=== PATIENT | female | born 1950 | race Asian ===

== ENCOUNTER 2016-09-24 14:30 | Outpatient (CLI) | payer MEDICARE | END 2016-09-24 14:31 | disposition home or self-care (01) | DX: I48.0 Paroxysmal atrial fibrillation (principal); N28.9 Disorder of kidney and ureter, unspecified ==

== ENCOUNTER 2016-11-11 10:28 | Outpatient (CLI) | payer MEDICARE, OTHER | END 2016-11-11 10:29 | disposition critical access hospital (66) | DX: R42 Dizziness and giddiness (principal); R06.02 Shortness of breath; R31.9 Hematuria, unspecified | CPT/HCPCS: A0425; A0427 ==

== ENCOUNTER 2016-11-11 10:47 | Emergency (ER) | payer MEDICARE, OTHER ==
[2016-11-11] MEDS ORDERED: hydrOXYzine PAMOATE 25 MG CAPSULE PO STA (14:27)
[2016-11-11] MEDS ORDERED: NITROFURANTOIN MACRO 100 MG CAPSULE PO STA (14:40)
[2016-11-11] MEDS ORDERED: NITROFURANTOIN MACRO 100 MG CAPSULE PO ONE (14:47)
[2016-11-11] MEDS ORDERED: AMOX/CLAV 875 MG/125 MG TABLET PO STA (16:29)
[2016-11-11] MEDS ORDERED: AMOX/CLAV 875 MG/125 MG TABLET PO ONE (16:36)
== END 2016-11-11 17:02 | disposition home or self-care (01) ==
DX: N30.91 Cystitis, unspecified with hematuria (principal); D58.9 Hereditary hemolytic anemia, unspecified; K92.1 Melena; J40 Bronchitis, not specified as acute or chronic; I10 Essential (primary) hypertension; I48.91 Unspecified atrial fibrillation; Z95.2 Presence of prosthetic heart valve; Z79.01 Long term (current) use of anticoagulants; Z79.82 Long term (current) use of aspirin; Z95.1 Presence of aortocoronary bypass graft; Z86.73 Personal history of transient ischemic attack (TIA), and cerebral infarction without residual deficits; Z88.1 Allergy status to other antibiotic agents
CPT/HCPCS: 36415; 71020; 81001; 85025; 85610; 87086; 93005; 99284; A9270

== ENCOUNTER 2016-11-12 08:00 | Outpatient (CLI) | payer MEDICARE, OTHER | END 2016-11-12 23:59 | DX: R06.02 Shortness of breath (principal) ==

== ENCOUNTER 2016-11-18 16:29 | Outpatient (CLI) | payer MEDICARE, OTHER | END 2016-11-18 16:30 | disposition short-term general hospital (02) | DX: R06.02 Shortness of breath (principal) | CPT/HCPCS: A0425; A0427 ==

== ENCOUNTER 2017-01-21 10:40 | Outpatient (CLI) | payer MEDICAID, MEDICARE, OTHER ==
[2017-01-21 17:28] LABS: CREATININE 4.8 mg/dL (0.4-1.0)
[2017-01-21 17:51] LABS: BASOPHILS # (AUTO) 0.1 10^3/uL (0.0-0.1); BASOPHILS % (AUTO) 1.3 %; EOSINOPHILS # (AUTO) 0.1 10^3/uL (0.0-0.7); EOSINOPHILS % (AUTO) 1.6 %; HCT - HEMATOCRIT 22.1 % (37.0-47.0); HGB - HEMOGLOBIN 7.2 g/dL (12.0-16.0); LYMPHOCYTES # (AUTO) 1.5 10^3/uL (1.5-3.5); LYMPHOCYTES % (AUTO) 17.6 %; MEAN CORPUSCULAR HEMOGLOBIN 30.4 pg (27.0-31.0); MEAN CORPUSCULAR HGB CONC 32.6 g/dL (32.0-36.0); MEAN CORPUSCULAR VOLUME 93.3 fL (81.0-99.0); MEAN PLATELET VOLUME 9.2 fL (7.9-10.8); MONOCYTES # (AUTO) 0.7 10^3/uL (0.0-1.0); MONOCYTES % (AUTO) 8.6 %; NEUTROPHILS % (AUTO) 70.9 %; NUCLEATED RED BLOOD CELLS AUTO 0.3 /100WBC; RED BLOOD COUNT 2.37 10^6/uL (4.20-5.40); RED CELL DISTRIBUTION WIDTH 22.2 % (12.0-15.0); UNCORRECTED WHITE BLOOD COUNT 8.5 x10^3/uL; WHITE BLOOD COUNT 8.5 x10^3/uL (4.8-10.8)
[2017-01-21 18:48] LABS: PLATELET ESTIMATE, MANUAL NORMAL (130-450,000) (NORMAL)
[2017-01-21 20:21] LABS: CALCIUM 9.2 mg/dL (8.5-10.3); POTASSIUM 4.4 mmol/L (3.5-5.0)
== END 2017-01-21 10:41 | disposition home or self-care (01) ==
LOC: LAB.R 10:40
DX: D59.9 Acquired hemolytic anemia, unspecified (principal); I10 Essential (primary) hypertension
CPT/HCPCS: 80048; 85025

== ENCOUNTER 2017-01-22 08:00 | Outpatient (CLI) | payer MEDICARE, MEDICAID ==
[2017-01-22 17:38] LABS: CALCIUM 8.9 mg/dL (8.5-10.3); CREATININE 4.2 mg/dL (0.4-1.0); POTASSIUM 4.5 mmol/L (3.5-5.0)
[2017-01-22 17:45] LABS: BASOPHILS # (AUTO) 0.1 10^3/uL (0.0-0.1); BASOPHILS % (AUTO) 1.3 %; EOSINOPHILS # (AUTO) 0.2 10^3/uL (0.0-0.7); EOSINOPHILS % (AUTO) 2.9 %; HCT - HEMATOCRIT 21.3 % (37.0-47.0); LYMPHOCYTES # (AUTO) 1.4 10^3/uL (1.5-3.5); MEAN CORPUSCULAR HEMOGLOBIN 30.7 pg (27.0-31.0); MEAN CORPUSCULAR HGB CONC 32.5 g/dL (32.0-36.0); MEAN CORPUSCULAR VOLUME 94.3 fL (81.0-99.0); MONOCYTES # (AUTO) 0.8 10^3/uL (0.0-1.0); MONOCYTES % (AUTO) 12.1 %; NEUTROPHILS # (AUTO) 4.3 10^3/uL (1.5-6.6); NEUTROPHILS % (AUTO) 62.7 %; NUCLEATED RED BLOOD CELLS AUTO 0.6 /100WBC; RED BLOOD COUNT 2.26 10^6/uL (4.20-5.40); RED CELL DISTRIBUTION WIDTH 22.2 % (12.0-15.0); UNCORRECTED WHITE BLOOD COUNT 6.9 x10^3/uL; WHITE BLOOD COUNT 6.9 x10^3/uL (4.8-10.8)
[2017-01-22 17:52] LABS: HGB - HEMOGLOBIN 6.9 g/dL (12.0-16.0)
[2017-01-22 19:48] LABS: PLATELET ESTIMATE, MANUAL NORMAL (130-450,000) (NORMAL)
== END 2017-01-22 08:01 | disposition home or self-care (01) ==
LOC: LAB.R 08:00
PROVIDERS: ATTEND Family Medicine
DX: I48.91 Unspecified atrial fibrillation (principal); D59.9 Acquired hemolytic anemia, unspecified
CPT/HCPCS: 80048; 85025

== ENCOUNTER 2017-01-22 20:34 | Outpatient (CLI) | payer MEDICARE, OTHER, MEDICAID | END 2017-01-22 20:35 | disposition short-term general hospital (02) | LOC: EMS 20:34 | PROVIDERS: ATTEND Surgery | DX: R06.02 Shortness of breath (principal) | CPT/HCPCS: A0425; A0429; A0888 ==

== ENCOUNTER 2017-04-07 14:53 | Outpatient (CLI) | payer MEDICARE, OTHER, MEDICAID | END 2017-04-07 14:54 | disposition home or self-care (01) | LOC: SC 14:53 | PROVIDERS: ATTEND Internal Medicine Pulmonary Disease | DX: G47.30 Sleep apnea, unspecified (principal); G47.8 Other sleep disorders; R06.83 Snoring | CPT/HCPCS: 99203; G0463; 99212 ==

== ENCOUNTER 2017-05-15 19:36 | Outpatient (CLI) | payer MEDICARE, OTHER | END 2017-05-15 19:37 | disposition home or self-care (01) | LOC: SC 19:36 | PROVIDERS: ATTEND Internal Medicine Pulmonary Disease | DX: G47.61 Periodic limb movement disorder (principal) | CPT/HCPCS: 95810 ==

== ENCOUNTER 2017-05-23 08:33 | Outpatient (CLI) | payer MEDICARE, OTHER ==
[2017-05-23 13:17] LABS: CHOL/HDL RATIO 3.3 (<4.4); CHOLESTEROL 203 mg/dL; HDL CHOLESTEROL 61 mg/dL; LDL/HDL RATIO 1.8 (<4.4); TRIGLYCERIDES 159 mg/dL; VLDL CHOLESTEROL 32 mg/dL
== END 2017-05-23 08:34 | disposition home or self-care (01) ==
LOC: LAB.WCP 08:33
PROVIDERS: ATTEND Family Medicine
DX: E78.5 Hyperlipidemia, unspecified (principal)
CPT/HCPCS: 80061

== ENCOUNTER 2017-06-01 08:34 | Outpatient (CLI) | payer MEDICARE, OTHER | END 2017-06-01 08:35 | disposition home or self-care (01) | LOC: SC 08:34 | PROVIDERS: ATTEND Nurse Practitioner Family | DX: G47.61 Periodic limb movement disorder (principal); F51.04 Psychophysiologic insomnia | CPT/HCPCS: 99214; G0463; 99212 ==

== ENCOUNTER 2017-08-05 21:20 | Outpatient (CLI) | payer MEDICARE, OTHER | END 2017-08-05 21:21 | disposition critical access hospital (66) | LOC: EMS 21:20 | PROVIDERS: ATTEND Surgery | DX: R42 Dizziness and giddiness (principal) | CPT/HCPCS: A0425; A0429 ==

== ENCOUNTER 2017-08-05 21:37 | Emergency (ER) | payer MEDICARE, OTHER ==
[2017-08-05 22:08] LABS: BASOPHILS # (AUTO) 0.1 10^3/uL (0.0-0.1); BASOPHILS % (AUTO) 0.6 %; EOSINOPHILS # (AUTO) 0.1 10^3/uL (0.0-0.7); EOSINOPHILS % (AUTO) 0.7 %; HCT - HEMATOCRIT 35.2 % (37.0-47.0); HGB - HEMOGLOBIN 11.2 g/dL (12.0-16.0); MEAN CORPUSCULAR HEMOGLOBIN 28.2 pg (27.0-31.0); MEAN CORPUSCULAR HGB CONC 31.9 g/dL (32.0-36.0); MEAN CORPUSCULAR VOLUME 88.5 fL (81.0-99.0); MEAN PLATELET VOLUME 7.9 fL (7.9-10.8); MONOCYTES # (AUTO) 0.9 10^3/uL (0.0-1.0); MONOCYTES % (AUTO) 6.5 %; NEUTROPHILS # (AUTO) 11.9 10^3/uL (1.5-6.6); NEUTROPHILS % (AUTO) 85.2 %; NUCLEATED RED BLOOD CELLS AUTO 0.1 /100WBC; RED BLOOD COUNT 3.98 10^6/uL (4.20-5.40); RED CELL DISTRIBUTION WIDTH 13.9 % (12.0-15.0); UNCORRECTED WHITE BLOOD COUNT 13.9 x10^3/uL; WHITE BLOOD COUNT 13.9 x10^3/uL (4.8-10.8)
[2017-08-05 22:14] LABS: INR 2.4 (0.8-1.2); PT - PROTHROMBIN TIME 26.3 secs (9.9-12.6)
[2017-08-05 22:16] LABS: CALCIUM 9.2 mg/dL (8.5-10.3); CREATININE 2.7 mg/dL (0.4-1.0); POTASSIUM 3.3 mmol/L (3.5-5.0)
--- NOTE | 2017-08-05 22:16 | ED Physician Documentation ---
History of Present Illness - Stated complaint Stated Complaint: BLEEDING FROM EXTRACTION - Chief complaint Chief Complaint: Heent - History obtained from History obtained from: Patient - History of Present Illness Timing: Today - Additonal information Additional information: patient had two teeth extracted earlier today by Dr. Sathish Meyer, but she had to return later during the day due to ongoing bleeding from the extraction sites. Patient is on Coumadin. The dentist was able to stop the bleeding with collagen "plug" (per patient), but she presents to ED at this time due to concern regarding the amount of blood she lost and some episodic lightheadedness when she stands and ambulates. The bleeding has not recurred since she was seen by the dentist. Review of Systems Throat: reports: Other (bleeding from dental extraction sites) PD PAST MEDICAL HISTORY - Past Medical History Cardiovascular: Hypertension, High cholesterol, Atrial fibrillation, Murmur, Arrhythmia, Valve disorder Respiratory: Shortness of breath Neuro: TIA, Headache/migraine Endocrine/Autoimmune: None GI: Hiatal hernia : Incontinence HEENT: Chronic vision loss Psych: Depression, Anxiety, Panic attacks Musculoskeletal: Osteoarthritis Derm: None - Past Surgical History Past Surgical History: Yes General: Other Ortho: Knee replacement, Arthroscopic surgery, Other /MANAGER COSMETIC: Tubal ligation Cardiovascular: CABG, Valve replacement - Present Medications Home Medications: Ambulatory Orders Medication Instructions Recorded Confirmed Aspirin 81 mg PO DAILY 10/02/13 08/05/17 Buspirone HCl 15 mg PO BID 10/02/13 08/05/17 FLUoxetine [PROzac] 40 mg PO DAILY 10/02/13 08/05/17 Metoprolol Succinate [Toprol Xl] 25 mg PO BID 10/02/13 08/05/17 Mirtazapine [Remeron] 15 mg PO HS 10/02/13 08/05/17 Pantoprazole Sodium [Protonix] 40 mg PO BID 10/02/13 08/05/17 Warfarin Sodium [Coumadin] 5 mg PO MOFR 10/02/13 08/05/17 ALPRAZolam [Xanax] 0.5 mg PO ONCE PRN 12/17/13 08/05/17 traMADol [Ultram] 50 mg PO TID 12/17/13 08/05/17 Atorvastatin [Lovastatin] 40 mg DAILY 12/23/13 08/05/17 Furosemide [Lasix] 40 mg PO BID 11/11/16 08/05/17 Acetaminophen with Codeine 1 tab PO Q4H PRN 04/12/17 08/05/17 [Acetaminophen-Cod #3 Tablet] Amiodarone HCl 200 mg PO DAILY 04/12/17 08/05/17 Bupropion HCl [Bupropion HCl Sr] 150 mg PO DAILY 04/12/17 08/05/17 Cyanocobalamin (Vitamin B-12) 1,000 mcg PO DAILY 04/12/17 08/05/17 [Vitamin B-12] Losartan Potassium [Losartan 12.5 mg PO DAILY 04/12/17 08/05/17 Potassium] Warfarin [Coumadin] 2.5 mg PO TUTHSA 04/12/17 08/05/17 Folic Acid 0.4 mg PO DAILY 05/24/17 08/05/17 - Allergies Allergies/Adverse Reactions: Allergies Allergy/AdvReac Type Severity Reaction Status Date / Time doxycycline Allergy Severe Emesis Verified 08/05/17 21:57 azithromycin [From Zithromax] Allergy Unknown Verified 08/05/17 21:57 trazodone Allergy Respiratory Verified 08/05/17 22:00 shellfish derived AdvReac Hives Verified 08/05/17 21:57 - Social History Does the pt smoke?: No Smoking Status: Never smoker Does the pt drink ETOH?: Yes Does the pt have substance abuse?: No - Immunizations Immunizations are current?: Yes - POLST Patient has POLST: No PD ED PE NORMAL - Vitals Vital signs reviewed: Yes - General General: Alert and oriented X 3, No acute distress, Well developed/nourished - HEENT HEENT: Moist mucous membranes, Other (right mandibular extraction sites have gauze material in place (appears to be gel foam or surgicel) with no active bleeding noted) - Cardiac Cardiac: RRR - Respiratory Respiratory: No respiratory distress, Clear bilaterally - Derm Derm: Normal color PD ED PE EXPANDED - Cardiac Cardiac: Murmur Present Results - Vitals Vitals: Vital Signs - 24 hr 08/05/17 08/05/17 08/05/17 21:39 22:58 23:34 Temperature 35.9 C L Heart Rate 96 74 Heart Rate [ 78 Sitting] Heart Rate [ 83 Standing] Heart Rate [ 75 Supine] Respiratory 18 14 Rate Blood Pressure 107/75 118/76 Blood Pressure 124/68 [Sitting] Blood Pressure 105/62 [Standing] Blood Pressure 101/64 [Supine] O2 Saturation 95 100 08/06/17 00:05 Temperature Heart Rate 74 Heart Rate [ Sitting] Heart Rate [ Standing] Heart Rate [ Supine] Respiratory 16 Rate Blood Pressure 110/68 Blood Pressure [Sitting] Blood Pressure [Standing] Blood Pressure [Supine] O2 Saturation 100 Oxygen O2 Source Room air - Labs Labs: Laboratory Tests 08/05/17 08/05/17 08/05/17 22:00 22:00 22:00 WBC 13.9 H RBC 3.98 L Hgb 11.2 L Hct 35.2 L MCV 88.5 MCH 28.2 MCHC 31.9 L RDW 13.9 Plt Count 285 MPV 7.9 Neut # 11.9 H Lymph # 1.0 L [place] # 0.9 Eos # 0.1 Baso # 0.1 Absolute Nucleated RBC 0.01 Nucleated RBC % 0.1 PT 26.3 H INR 2.4 H Sodium 142 Potassium 3.3 L Chloride 100 L Carbon Dioxide 26 Anion Gap 16.0 H BUN 34 H Creatinine 2.7 H Estimated GFR (MDRD) 18 L Glucose 118 H Calcium 9.2 PD MEDICAL DECISION MAKING - ED course Complexity details: reviewed results, re-evaluated patient, considered differential, d/w patient ED course: Reassuring blood test results, mostly comparable to previous results although her creatinine is more elevated than her baseline (except for January of 2017 when it was particularly elevated associated with acute illness). Given 500cc NS bolus and subsequently orthostatic vital signs did not reveal significant change from lying down to sitting to standing. Departure - Departure Disposition: 01 Home, Self Care Clinical Impression: Surgical wound hemorrhage after dental procedure Condition: Good Instructions: ED Wound Check Post Op Bleeding Comments: Your blood pressure and blood tests were reassuring tonight and do not indicate a significant amount of blood loss. Follow-up with your dentist to reassess the extraction sites, and follow-up with your primary care physician, as they might recommend rechecking of some of the blood tests. Discharge Date/Time: 08/06/17 00:10
[2017-08-05] MEDS ORDERED: SODIUM CHLORIDE 0.9% 500 ML IV STA (22:36)
[2017-08-06 00:11] VITALS: BP 110/68
== END 2017-08-06 00:10 | disposition home or self-care (01) ==
LOC: EDUNIT# → ED 21:37
DX: L76.22 Postprocedural hemorrhage of skin and subcutaneous tissue following other procedure (principal); Z98.818 Other dental procedure status; K08.409 Partial loss of teeth, unspecified cause, unspecified class; I10 Essential (primary) hypertension; E78.00 Pure hypercholesterolemia, unspecified; I48.91 Unspecified atrial fibrillation; Z79.01 Long term (current) use of anticoagulants; I49.9 Cardiac arrhythmia, unspecified; Z86.73 Personal history of transient ischemic attack (TIA), and cerebral infarction without residual deficits; I25.10 Atherosclerotic heart disease of native coronary artery without angina pectoris; Z95.1 Presence of aortocoronary bypass graft; M19.90 Unspecified osteoarthritis, unspecified site; Z95.2 Presence of prosthetic heart valve; Z79.82 Long term (current) use of aspirin
CPT/HCPCS: 36415; 80048; 85025; 85610; 99283; 99284

== ENCOUNTER 2017-08-17 08:00 | Outpatient (CLI) | payer MEDICARE, OTHER ==
[2017-08-17 18:43] LABS: BASOPHILS % (AUTO) 0.6 %; EOSINOPHILS # (AUTO) 0.2 10^3/uL (0.0-0.7); EOSINOPHILS % (AUTO) 3.6 %; HCT - HEMATOCRIT 37.1 % (37.0-47.0); HGB - HEMOGLOBIN 11.8 g/dL (12.0-16.0); IMMATURE RETIC FRACTION 0.48; LYMPHOCYTES # (AUTO) 1.6 10^3/uL (1.5-3.5); LYMPHOCYTES % (AUTO) 23.9 %; MEAN CORPUSCULAR HEMOGLOBIN 28.9 pg (27.0-31.0); MEAN CORPUSCULAR HGB CONC 31.7 g/dL (32.0-36.0); MEAN CORPUSCULAR VOLUME 91.2 fL (81.0-99.0); MEAN PLATELET VOLUME 8.2 fL (7.9-10.8); MONOCYTES # (AUTO) 0.6 10^3/uL (0.0-1.0); MONOCYTES % (AUTO) 8.6 %; NEUTROPHILS # (AUTO) 4.1 10^3/uL (1.5-6.6); NEUTROPHILS % (AUTO) 63.3 %; NUCLEATED RED BLOOD CELLS AUTO 0.1 /100WBC; RED BLOOD COUNT 4.07 10^6/uL (4.20-5.40); RED CELL DISTRIBUTION WIDTH 14.6 % (12.0-15.0); UNCORRECTED WHITE BLOOD COUNT 6.5 x10^3/uL; WHITE BLOOD COUNT 6.5 x10^3/uL (4.8-10.8)
[2017-08-17 18:50] LABS: ALBUMIN/GLOBULIN RATIO 1.3 (1.0-2.2); BILIRUBIN,TOTAL 0.5 mg/dL (0.2-1.0); CALCIUM 9.1 mg/dL (8.5-10.3); CREATININE 2.4 mg/dL (0.4-1.0); POTASSIUM 3.7 mmol/L (3.5-5.0); TOTAL PROTEIN 7.7 g/dL (6.7-8.2)
== END 2017-08-17 08:01 | disposition home or self-care (01) ==
LOC: LAB.WCP 08:00
PROVIDERS: ATTEND Family Medicine
DX: D64.9 Anemia, unspecified (principal); N17.9 Acute kidney failure, unspecified; D59.1 Other autoimmune hemolytic anemias
CPT/HCPCS: 36415; 80053; 85025; 85044

== ENCOUNTER 2017-11-01 16:15 | Outpatient (CLI) | payer MEDICARE, OTHER | END 2017-11-01 16:16 | disposition home or self-care (01) | LOC: LAB.R 16:15 | PROVIDERS: ATTEND Family Medicine | DX: N39.0 Urinary tract infection, site not specified (principal) | CPT/HCPCS: 87086 ==

== ENCOUNTER 2018-05-08 14:24 | Outpatient (CLI) | payer MEDICARE, OTHER ==
[2018-05-08 19:14] LABS: CALCIUM 8.9 mg/dL (8.5-10.3); CREATININE 2.3 mg/dL (0.4-1.0)
== END 2018-05-08 14:25 | disposition home or self-care (01) ==
LOC: LAB.WCP 14:24
PROVIDERS: ATTEND Internal Medicine Nephrology
DX: N05.9 Unspecified nephritic syndrome with unspecified morphologic changes (principal)
CPT/HCPCS: 36415; 80048

== ENCOUNTER → 2018-06-22 | Outpatient (CLI) | payer MEDICARE, OTHER ==
[2018-06-22 18:59] LABS: CREATININE 2.4 mg/dL (0.4-1.0)
== END ==
LOC: LAB.WCP 08:00
PROVIDERS: ATTEND Internal Medicine Nephrology
DX: N05.9 Unspecified nephritic syndrome with unspecified morphologic changes (principal)
CPT/HCPCS: 36415; 80048

== ENCOUNTER 2018-09-05 08:00 | Outpatient (CLI) | payer MEDICARE, OTHER ==
[2018-09-05 18:56] LABS: HGB - HEMOGLOBIN 13.1 g/dL (12.0-16.0); MEAN CORPUSCULAR HEMOGLOBIN 29.4 pg (27.0-31.0); MEAN CORPUSCULAR HGB CONC 32.4 g/dL (32.0-36.0); MEAN CORPUSCULAR VOLUME 90.9 fL (81.0-99.0); MEAN PLATELET VOLUME 8.6 fL (7.9-10.8); RED BLOOD COUNT 4.46 10^6/uL (4.20-5.40); RED CELL DISTRIBUTION WIDTH 13.8 % (12.0-15.0); WHITE BLOOD COUNT 7.3 x10^3/uL (4.8-10.8)
[2018-09-05 19:08] LABS: CALCIUM 8.8 mg/dL (8.5-10.3); CREATININE 2.3 mg/dL (0.4-1.0)
== END 2018-09-05 23:59 | disposition home or self-care (01) ==
LOC: LAB.WCP 08:00
PROVIDERS: ATTEND Family Medicine
DX: R06.00 Dyspnea, unspecified (principal)
CPT/HCPCS: 36415; 80048; 83880; 85027

== ENCOUNTER 2018-09-27 11:55 | Outpatient (CLI) | payer MEDICARE, OTHER ==
[2018-09-27 19:20] LABS: MEAN CORPUSCULAR HEMOGLOBIN 29.1 pg (27.0-31.0); MEAN PLATELET VOLUME 7.9 fL (7.9-10.8); RED BLOOD COUNT 4.12 10^6/uL (4.20-5.40); RED CELL DISTRIBUTION WIDTH 13.4 % (12.0-15.0); WHITE BLOOD COUNT 8.7 x10^3/uL (4.8-10.8)
[2018-09-27 19:32] LABS: CRP - C-REACTIVE PROTEIN 7.6 mg/dL (0-1.0)
[2018-09-27 19:37] LABS: URIC ACID 11.9 mg/dL (2.6-7.2)
[2018-09-27 19:52] LABS: RHEUMATOID FACTOR NEGATIVE (Negative)
== END 2018-09-27 11:56 | disposition home or self-care (01) ==
LOC: LAB.WCP 11:55
PROVIDERS: ATTEND Family Medicine
DX: M79.673 Pain in unspecified foot (principal); I48.0 Paroxysmal atrial fibrillation
CPT/HCPCS: 36415; 84550; 85027; 85610; 85651; 86140; 86200; 86430

== ENCOUNTER 2018-10-24 08:00 | Outpatient (CLI) | payer MEDICARE, OTHER | END 2018-10-24 23:59 | disposition home or self-care (01) | LOC: LAB.WCP 08:00 | PROVIDERS: ATTEND Family Medicine | DX: I48.91 Unspecified atrial fibrillation (principal); I35.9 Nonrheumatic aortic valve disorder, unspecified; Z79.01 Long term (current) use of anticoagulants ==

== ENCOUNTER 2018-11-08 08:00 | Outpatient (CLI) | payer MEDICARE, OTHER ==
[2018-11-08 19:19] LABS: CALCIUM 9.3 mg/dL (8.5-10.3); CREATININE 2.2 mg/dL (0.4-1.0); PHOSPHORUS 3.3 mg/dL (2.5-4.6)
== END 2018-11-08 23:59 | disposition home or self-care (01) ==
LOC: LAB.WCP 08:00
PROVIDERS: ATTEND Internal Medicine Nephrology
DX: N05.9 Unspecified nephritic syndrome with unspecified morphologic changes (principal)
CPT/HCPCS: 36415; 80048; 83970; 84100

== ENCOUNTER 2018-11-22 08:00 | Outpatient (CLI) | payer MEDICARE, OTHER | END 2018-11-22 23:59 | disposition home or self-care (01) | LOC: LAB.WCP 08:00 | PROVIDERS: ATTEND Family Medicine | DX: I48.0 Paroxysmal atrial fibrillation (principal); Z79.01 Long term (current) use of anticoagulants | CPT/HCPCS: 81025 ==

== ENCOUNTER 2018-12-20 13:55 | Outpatient (CLI) | payer MEDICARE, OTHER ==
[2018-12-20 18:54] LABS: BASOPHILS % (AUTO) 0.4 %; EOSINOPHILS # (AUTO) 0.1 10^3/uL (0.0-0.7); EOSINOPHILS % (AUTO) 2.9 %; LYMPHOCYTES # (AUTO) 1.5 10^3/uL (1.5-3.5); LYMPHOCYTES % (AUTO) 30.3 %; MEAN CORPUSCULAR HEMOGLOBIN 28.7 pg (27.0-31.0); MEAN CORPUSCULAR HGB CONC 32.1 g/dL (32.0-36.0); MEAN CORPUSCULAR VOLUME 89.5 fL (81.0-99.0); MEAN PLATELET VOLUME 8.6 fL (7.9-10.8); MONOCYTES # (AUTO) 0.4 10^3/uL (0.0-1.0); MONOCYTES % (AUTO) 8.1 %; NEUTROPHILS # (AUTO) 2.8 10^3/uL (1.5-6.6); NEUTROPHILS % (AUTO) 58.3 %; PLT - PLATELET COUNT 270 10^3/uL (130-450); RED BLOOD COUNT 4.54 10^6/uL (4.20-5.40); RED CELL DISTRIBUTION WIDTH 14.5 % (12.0-15.0); WHITE BLOOD COUNT 4.8 x10^3/uL (4.8-10.8)
[2018-12-20 19:23] LABS: ALBUMIN 4.4 g/dL (3.2-5.5); ALBUMIN/GLOBULIN RATIO 1.2 (1.0-2.2); ALKALINE PHOSPHATASE 92 IU/L (42-121); ALT ALANINE AMINOTRANSFERASE 18 IU/L (10-60); AST ASPARTATE AMINOTRANSFERASE 27 IU/L (10-42); BILIRUBIN,TOTAL 0.6 mg/dL (0.2-1.0); BUN - BLOOD UREA NITROGEN 28 mg/dL (6-20); CALCIUM 9.2 mg/dL (8.5-10.3); CARBON DIOXIDE - CO2 26 mmol/L (21-32); CHLORIDE 102 mmol/L (101-111); CHOL/HDL RATIO 3.1 (<4.4); CHOLESTEROL 206 mg/dL; CREATININE 2.2 mg/dL (0.4-1.0); GFR - MDRD 22 (>89); GLUCOSE 107 mg/dL (70-100); HDL CHOLESTEROL 67 mg/dL; LDL CHOLESTEROL,CALCULATED 104 mg/dL; LDL/HDL RATIO 1.6 (<4.4); SODIUM 139 mmol/L (135-145); TOTAL PROTEIN 8.1 g/dL (6.7-8.2); URIC ACID 8.6 mg/dL (2.6-7.2); VLDL CHOLESTEROL 35 mg/dL
[2018-12-20 19:50] LABS: FREE T4 (FREE THYROXINE) 2.25 ng/dL (0.58-1.64)
== END 2018-12-20 13:56 | disposition home or self-care (01) ==
LOC: LAB.WCP 13:55
PROVIDERS: ATTEND Family Medicine
DX: N18.4 Chronic kidney disease, stage 4 (severe) (principal); I48.0 Paroxysmal atrial fibrillation; I25.10 Atherosclerotic heart disease of native coronary artery without angina pectoris; M10.00 Idiopathic gout, unspecified site
CPT/HCPCS: 36415; 80053; 80061; 83721; 84439; 84443; 84550; 85025

== ENCOUNTER 2019-01-23 14:02 | Outpatient (CLI) | payer MEDICARE, OTHER ==
[2019-01-23 19:09] LABS: THYROID STIMULATING HORMONE 6.28 uIU/mL (0.34-5.60)
[2019-01-23 19:10] LABS: FREE T4 (FREE THYROXINE) 2.35 ng/dL (0.58-1.64)
[2019-01-23 19:13] LABS: PROLACTIN 10.83 ng/mL
== END 2019-01-23 14:03 | disposition home or self-care (01) ==
LOC: LAB.WCP 14:02
PROVIDERS: ATTEND Family Medicine
DX: E23.3 Hypothalamic dysfunction, not elsewhere classified (principal); E07.9 Disorder of thyroid, unspecified
CPT/HCPCS: 36415; 84146; 84439; 84443; 84481; 86376; 86800

== ENCOUNTER 2019-01-31 11:07 | Outpatient (CLI) | payer MEDICARE, OTHER ==
--- NOTE | 2019-01-31 13:28 | Ultrasound Report ---
Reason: HYPERTHYROIDISM,PITUITARY DYSFUNCTION,KIDNEY DISEA Procedure Date: 01/31/2019 Accession Number: [id number] / [id number] Procedure: US - Head or Neck Soft Tissue CPT Code: FULL RESULT: EXAM: THYROID ULTRASOUND EXAM DATE: 01/31/2019 12:33 PM. CLINICAL HISTORY: HYPERTHYROIDISM,PITUITARY DYSFUNCTION,KIDNEY DISEASE. COMPARISON: None. TECHNIQUE: Real time sonographic imaging of the thyroid was performed by the director appointment. Multiple manufacturer's service representative static images were saved for review. FINDINGS: THYROID GLAND: Right Lobe: 5.0 x 2.5 x 2.7 cm, volume 17.6 cc. Normal background echotexture. Right Lobe Nodules: There are innumerable scattered tiny benign-appearing mixed cystic/solid nodules. There is a dominant complex nodule in the right mid pole measuring 14 x 11 x 10 mm diameter. Left Lobe: 5.0 x 1.8 x 1.9 cm, volume 8.9 cc. Normal background echotexture. Left Lobe Nodules: There are innumerable tiny benign-appearing scattered mixed cystic/solid nodules. There is a dominant vascular hypoechoic vascular mixed cystic/solid nodule in the medial left pole junction with the isthmus measuring 17 x 7 x 8 mm in diameter. This nodule also includes a macro calcification. Isthmus: 0.9 cm AP. Isthmic Nodules: None. LYMPH NODES: No adenopathy demonstrated in the central or lateral compartment. OTHER: None. IMPRESSION: 1. Mildly enlarged multinodular goiter. 2. Dominant 14 mm maximal diameter complex mixed cystic/solid right mid pole nodule. Ultrasound-guided fine-needle aspiration biopsy recommended. 3. Dominant 17 mm maximal diameter complex mixed cystic/solid left mid pole nodule with increased vascularity and central macrocalcification. Ultrasound-guided fine-needle aspiration biopsy recommended. Management recommendations are based on 2015 [place] [employer] Management Guidelines for Adult Patients with Thyroid Nodules and Differentiated Thyroid Cancer. RADIA
--- NOTE | 2019-01-31 15:48 | MRI Report ---
Reason: HYPERTHYROIDISM,PITUITARY DYSFUNCTION,KIDNEY DISEA Procedure Date: 01/31/2019 Accession Number: [id number] / [id number] Procedure: MRI - Brain W/O CPT Code: FULL RESULT: MRI BRAIN WITHOUT CONTRAST INDICATION: 68-year-old female. Hyperthyroidism. Pituitary dysfunction. Kidney disease. TECHNIQUE: 1. T1 sagittal and fat-saturated T2 coronal. 2. Axial T1 3D MP RAGE, FLAIR, T2*GRE and DWI. 3. Thin slice, T1 and T2 coronal (pituitary and sella). FINDINGS: The history of hyperthyroidism is noted. This examination and was presumably requested to evaluate for any possible, TSH secreting pituitary adenoma. However, gadolinium was not administered, presumably due to severe renal dysfunction. This limits evaluation of the pituitary. On the T1 sagittal sequence, the sella is not abnormally enlarged. No definite, T1 hyperintense neurohypophysis is identified in the posterior aspect of the sella on the 5 mm sagittal images. However, there is no abnormal T1 hyperintense focus elsewhere in the parasellar region to suggest the possibility of an ectopic posterior lobe. The pituitary appears to have a normal size and configuration. There is mild downsloping of the sellar floor on the left, probably related to development of the sphenoid sinus, rather than representing acquired depression of the floor. This results in mild displacement of the infundibulum to the left. The height of the pituitary appears symmetric from side to side. No focal T2 hyperintense or hypointense lesion is identified within the pituitary. There is no suprasellar mass. The optic chiasm is normal and noncompressed. There is generalized prominence of the cerebral cortical sulci and cerebellar folia, considered within normal limits for stated age. Ventricular size is normal. A small focus of encephalomalacia is identified in the cortex and subcortical white matter in the lateral aspect of the anterior left parietal lobe, consistent with the sequela of a remote, minor, embolic-type cortical infarction. This is in the distribution of the posterior division of the left middle cerebral artery. A mild amount of white matter disease is demonstrated in the supratentorial brain, manifested as focal and confluent T2 hyperintensities that are scattered throughout the periventricular, deep and subcortical white matter bilaterally. A frontoparietal distribution predominates. An old lacunar infarction is identified in the right caudate nucleus. Signal intensity of cortex and white matter is otherwise unremarkable. There appear to be flow voids for the main intracranial arteries. No abnormal diffusion restriction is demonstrated. A tiny focus of magnetic susceptibility artifact is identified in the anterior and inferior left parietal lobe, just posterior to the splenium of the corpus callosum (image 14 of series 801). In addition, there is a larger focus of magnetic susceptibility artifact within the cortex or on the surface of the cortex, laterally in the distribution of the anterior aspect of the left postcentral gyrus (image 16 of series 801). These foci of magnetic susceptibly artifact probably represent hemosiderin from prior microhemorrhages. No abnormal extra-axial fluid collection. No mass effect or midline shift. Very limited evaluation of the orbits reveals no gross pathology. There is mild mucosal thickening scattered throughout the ethmoid air cells. The paranasal sinuses are otherwise essentially clear. No significant mastoid or middle ear effusion is demonstrated. Marrow signal intensity of the regional skeletal structures is unremarkable. IMPRESSION: 1. A history of "hyperthyroidism, pituitary dysfunction" has been provided. Presumably, this examination was requested to evaluate for a possible TSH secreting pituitary adenoma. Unfortunately contrast could not be administered due to renal failure. This limits evaluation of the pituitary. In particular, the possibility of a small microadenoma cannot be excluded. However, no obvious pituitary lesion is demonstrated on this unenhanced brain MRI. Certainly no suprasellar mass is demonstrated. The optic chiasm is normal and noncompressed. 2. A small focus of encephalomalacia is seen in the left parietal lobe, consistent with the sequela of a remote, embolic-type infarction. This is in the distribution of the posterior division of the left middle cerebral artery. 3. A mild amount of white matter disease is identified in the supratentorial brain, likely representing chronic microangiopathy. 4. Small foci of magnetic susceptibility artifact are identified within the left parietal lobe, likely representing hemosiderin from previous microhemorrhages. Main differential diagnostic considerations for microhemorrhages in a patient of this age are amyloid angiopathy versus chronic hypertension. 5. No other significant intracranial pathology on this unenhanced brain MRI. In particular, there is no evidence of an acute infarction or acute hemorrhage.
== END 2019-01-31 11:08 | disposition home or self-care (01) ==
LOC: DI 11:07
PROVIDERS: ATTEND Family Medicine
DX: G93.89 Other specified disorders of brain (principal); R90.82 White matter disease, unspecified; E04.2 Nontoxic multinodular goiter; E05.90 Thyrotoxicosis, unspecified without thyrotoxic crisis or storm; E23.3 Hypothalamic dysfunction, not elsewhere classified; N18.4 Chronic kidney disease, stage 4 (severe)
CPT/HCPCS: 70551; 76536

== ENCOUNTER 2019-02-16 14:06 | Outpatient (CLI) | payer MEDICARE, OTHER ==
[2019-02-16 20:17] LABS: FREE T4 (FREE THYROXINE) 1.01 ng/dL (0.58-1.64)
== END 2019-02-16 14:07 | disposition home or self-care (01) ==
LOC: LAB.WCP 14:06
PROVIDERS: ATTEND Physician Assistant
DX: E05.90 Thyrotoxicosis, unspecified without thyrotoxic crisis or storm (principal)
CPT/HCPCS: 36415; 84439; 84443

== ENCOUNTER 2019-03-06 08:50 | Outpatient (CLI) | payer MEDICARE, OTHER ==
[2019-03-06] MEDS ORDERED: BUFFERED LIDOCAINE 10 ML SYRINGE ONE (09:26)
[2019-03-06] MEDS ORDERED: BUFFERED LIDOCAINE 10 ML SYRINGE IU ONE (11:30)
--- NOTE | 2019-03-06 14:23 | Ultrasound Report ---
Reason: THYROID NODULE Procedure Date: 03/06/2019 Accession Number: [id number] / [id number] Procedure: US - FNA Bx w/US Gnd les CPT Code: 46569 FULL RESULT: EXAM: Thyroid Fine Needle Aspiration EXAM DATE: 03/06/2019 10:57 AM. CLINICAL HISTORY: THYROID NODULE. COMPARISON: 01/31/2019. TECHNIQUE: The risks, benefits, and alternatives of the procedure were discussed with the patient. All questions were answered. Written and verbal consent were obtained. A site was marked over the bilateral thyroid in question under live sonographic evaluation, then subsequently prepped and draped in a sterile manner. Local anesthesia was performed with 1% lidocaine. A total of 4 22 gauge fine-needle aspirates/passes were performed through the right and left thyroid nodules in question, then passed to the director business management for preparation. Estimated blood loss was 0 mL. Sonographic images demonstrate needle placement within the target thyroid nodule, posteriorly in the inferior right pole and anteriorly towards the isthmus on the left, dominant nodule on each side respectively as suggested on the diagnostic ultrasound. Fluoroscopy Time: None. Number of Images: No fluoroscopic images, 23 sonographic images. FINDINGS IMPRESSION: Bilateral thyroid nodule FNA. RADIA
== END 2019-03-06 08:51 | disposition home or self-care (01) ==
LOC: DI 08:50
PROVIDERS: ATTEND Family Medicine
DX: E04.1 Nontoxic single thyroid nodule (principal)
CPT/HCPCS: 10005; 10006

== ENCOUNTER 2019-03-23 | Outpatient (CLI) | payer MEDICARE, OTHER | END 2019-03-23 23:59 | disposition home or self-care (01) ==

== ENCOUNTER 2019-03-27 12:32 | Outpatient (CLI) | payer MEDICARE, OTHER ==
--- NOTE | 2019-03-27 13:10 | CT Report ---
Reason: UNSPECIFIED INJURY OF HEAD, INITIAL ENCOUNTER Procedure Date: 03/27/2019 Accession Number: [id number] / [id number] Procedure: CT - HEAD WO CPT Code: FULL RESULT: EXAM: CT HEAD EXAM DATE: 03/27/2019 12:50 PM. CLINICAL HISTORY: UNSPECIFIED INJURY OF HEAD, INITIAL ENCOUNTER. COMPARISON: CT HEAD W/O CONT 11/09/2012 5:08 PM. TECHNIQUE: Multiaxial CT images were obtained from the foramen magnum to the vertex. Reformats: Sagittal and coronal. IV contrast: None. In accordance with CT protocol optimization, one or more of the following dose reduction techniques were utilized for this exam: automated exposure control, adjustment of mA and/or KV based on patient size, or use of iterative reconstructive technique. FINDINGS: Parenchyma: No intraparenchymal hemorrhage. Small foci of calcification, degenerative process in the bilateral basal ganglia again visualized. No evidence of mass or midline shift. Keys-white differentiation is distinct. Extraaxial Spaces: Normal for age. No subdural or epidural collections identified. Ventricles: Normal in size and position. Sinuses and Orbits: Imaged paranasal sinuses, orbits, and mastoids show no significant abnormality. Bones: No evidence of fracture or calvarial defect. Other: No scalp hematoma seen. IMPRESSION: Negative head CT. RADIA The call report notification system was initiated by Dr. Keely Young at 01:06 PM on 03/27/2019.
== END 2019-03-27 12:33 | disposition home or self-care (01) ==
LOC: DI 12:32
PROVIDERS: ATTEND Family Medicine
DX: G45.9 Transient cerebral ischemic attack, unspecified (principal); S09.90XA Unspecified injury of head, initial encounter; Z79.01 Long term (current) use of anticoagulants
CPT/HCPCS: 70450

== ENCOUNTER 2019-04-24 08:00 | Outpatient (CLI) | payer MEDICARE, OTHER ==
[2019-04-24 18:52] LABS: BASOPHILS % (AUTO) 0.5 %; EOSINOPHILS # (AUTO) 0.2 10^3/uL (0.0-0.7); EOSINOPHILS % (AUTO) 2.5 %; HGB - HEMOGLOBIN 12.6 g/dL (12.0-16.0); LYMPHOCYTES # (AUTO) 1.6 10^3/uL (1.5-3.5); LYMPHOCYTES % (AUTO) 25.5 %; MEAN CORPUSCULAR HEMOGLOBIN 28.8 pg (27.0-31.0); MEAN CORPUSCULAR HGB CONC 30.5 g/dL (32.0-36.0); MEAN CORPUSCULAR VOLUME 94.3 fL (81.0-99.0); MEAN PLATELET VOLUME 10.6 fL (7.9-10.8); MONOCYTES # (AUTO) 0.7 10^3/uL (0.0-1.0); MONOCYTES % (AUTO) 10.5 %; NEUTROPHILS # (AUTO) 3.8 10^3/uL (1.5-6.6); NEUTROPHILS % (AUTO) 60.4 %; PLT - PLATELET COUNT 283 10^3/uL (130-450); RED BLOOD COUNT 4.38 10^6/uL (4.20-5.40); RED CELL DISTRIBUTION WIDTH 13.7 % (12.0-15.0); WHITE BLOOD COUNT 6.3 x10^3/uL (4.8-10.8)
[2019-04-24 18:54] LABS: CREATININE 2.2 mg/dL (0.4-1.0); PHOSPHORUS 3.4 mg/dL (2.5-4.6)
== END 2019-04-24 23:59 ==
LOC: LAB.WCP 08:00
PROVIDERS: ATTEND Internal Medicine Nephrology
DX: N05.9 Unspecified nephritic syndrome with unspecified morphologic changes (principal); D70.9 Neutropenia, unspecified; E83.30 Disorder of phosphorus metabolism, unspecified; N25.81 Secondary hyperparathyroidism of renal origin
CPT/HCPCS: 36415; 80048; 83970; 84100; 85025

== ENCOUNTER 2019-05-08 08:00 | Outpatient (CLI) | payer MEDICARE, OTHER | END 2019-05-08 23:59 | disposition home or self-care (01) | LOC: LAB.WCP 08:00 | PROVIDERS: ATTEND Family Medicine | DX: I48.0 Paroxysmal atrial fibrillation (principal); Z79.01 Long term (current) use of anticoagulants ==

== ENCOUNTER 2019-06-05 08:00 | Outpatient (CLI) | payer MEDICARE, OTHER | END 2019-06-05 23:59 | disposition home or self-care (01) | LOC: LAB.WCP 08:00 | PROVIDERS: ATTEND Family Medicine | DX: Z79.01 Long term (current) use of anticoagulants (principal); I48.0 Paroxysmal atrial fibrillation ==

== ENCOUNTER 2019-06-20 08:00 | Outpatient (CLI) | payer MEDICARE, OTHER | END 2019-06-20 23:59 | disposition home or self-care (01) | LOC: LAB.WCP 08:00 | PROVIDERS: ATTEND Family Medicine | DX: I48.91 Unspecified atrial fibrillation (principal); Z79.01 Long term (current) use of anticoagulants ==

== ENCOUNTER 2019-07-04 08:00 | Outpatient (CLI) | payer MEDICARE, OTHER | END 2019-07-04 23:59 | disposition home or self-care (01) | LOC: LAB.WCP 08:00 | PROVIDERS: ATTEND Family Medicine | DX: Z79.01 Long term (current) use of anticoagulants (principal); I48.91 Unspecified atrial fibrillation ==

== ENCOUNTER 2019-07-25 09:00 | Outpatient (CLI) | payer MEDICARE, OTHER ==
[2019-07-25 18:41] LABS: HGB - HEMOGLOBIN 11.7 g/dL (12.0-16.0); MEAN CORPUSCULAR HEMOGLOBIN 28.3 pg (27.0-31.0); MEAN CORPUSCULAR HGB CONC 30.2 g/dL (32.0-36.0); MEAN CORPUSCULAR VOLUME 93.7 fL (81.0-99.0); MEAN PLATELET VOLUME 10.3 fL (7.9-10.8); RED BLOOD COUNT 4.14 10^6/uL (4.20-5.40); RED CELL DISTRIBUTION WIDTH 13.4 % (12.0-15.0); WHITE BLOOD COUNT 7.2 x10^3/uL (4.8-10.8)
[2019-07-25 19:00] LABS: CALCIUM 8.8 mg/dL (8.5-10.3); CREATININE 2.3 mg/dL (0.4-1.0)
== END 2019-07-25 23:59 | disposition home or self-care (01) ==
LOC: LAB.WCP 09:00
PROVIDERS: ATTEND Internal Medicine Nephrology
DX: N05.9 Unspecified nephritic syndrome with unspecified morphologic changes (principal); N18.9 Chronic kidney disease, unspecified; D63.1 Anemia in chronic kidney disease; D70.9 Neutropenia, unspecified; Z79.01 Long term (current) use of anticoagulants; I48.91 Unspecified atrial fibrillation
CPT/HCPCS: 36415; 80048; 85027

== ENCOUNTER 2019-08-27 08:00 | Outpatient (CLI) | payer MEDICARE, OTHER | END 2019-08-27 23:59 | disposition home or self-care (01) | LOC: LAB.WCP 08:00 | PROVIDERS: ATTEND Family Medicine | DX: Z79.01 Long term (current) use of anticoagulants (principal); I48.91 Unspecified atrial fibrillation ==

== ENCOUNTER 2019-09-24 08:00 | Outpatient (CLI) | payer MEDICARE, OTHER | END 2019-09-24 23:59 | disposition home or self-care (01) | LOC: LAB.WCP 08:00 | PROVIDERS: ATTEND Family Medicine | DX: I48.91 Unspecified atrial fibrillation (principal) ==

== ENCOUNTER 2019-10-23 08:00 | Outpatient (CLI) | payer MEDICARE, OTHER | END 2019-10-23 23:59 | disposition home or self-care (01) | LOC: LAB.WCP 08:00 | PROVIDERS: ATTEND Family Medicine | DX: I48.91 Unspecified atrial fibrillation (principal); Z79.01 Long term (current) use of anticoagulants ==

== ENCOUNTER 2019-11-05 08:00 | Outpatient (CLI) | payer MEDICARE, OTHER | END 2019-11-05 23:59 | disposition home or self-care (01) | LOC: LAB.R 08:00 | PROVIDERS: ATTEND Nurse Practitioner Family | DX: R30.0 Dysuria (principal) | CPT/HCPCS: 87086; 87181 ==

== ENCOUNTER 2019-11-09 08:00 | Outpatient (CLI) | payer MEDICARE, OTHER | END 2019-11-09 23:59 | disposition home or self-care (01) | LOC: LAB.WCP 08:00 | PROVIDERS: ATTEND Family Medicine | DX: I48.91 Unspecified atrial fibrillation (principal); G45.9 Transient cerebral ischemic attack, unspecified; Z79.01 Long term (current) use of anticoagulants ==

== ENCOUNTER 2019-11-09 13:00 | Outpatient (CLI) | payer MEDICARE, OTHER ==
[2019-11-09 18:30] LABS: HGB - HEMOGLOBIN 12.7 g/dL (12.0-16.0); MEAN CORPUSCULAR HEMOGLOBIN 27.4 pg (27.0-31.0); MEAN CORPUSCULAR HGB CONC 29.5 g/dL (32.0-36.0); MEAN CORPUSCULAR VOLUME 92.9 fL (81.0-99.0); MEAN PLATELET VOLUME 10.1 fL (7.9-10.8); RED BLOOD COUNT 4.64 10^6/uL (4.20-5.40); RED CELL DISTRIBUTION WIDTH 13.8 % (12.0-15.0); WHITE BLOOD COUNT 6.6 x10^3/uL (4.8-10.8)
[2019-11-09 19:24] LABS: CALCIUM 8.9 mg/dL (8.5-10.3); PHOSPHORUS 3.8 mg/dL (2.5-4.6)
== END 2019-11-09 23:59 | disposition home or self-care (01) ==
LOC: LAB.WCP 13:00
PROVIDERS: ATTEND Internal Medicine Nephrology
DX: N05.9 Unspecified nephritic syndrome with unspecified morphologic changes (principal); D70.9 Neutropenia, unspecified; I48.91 Unspecified atrial fibrillation; G45.9 Transient cerebral ischemic attack, unspecified; Z79.01 Long term (current) use of anticoagulants
CPT/HCPCS: 36415; 80048; 83970; 84100; 85027

== ENCOUNTER 2019-11-22 08:00 | Outpatient (CLI) | payer MEDICARE, OTHER | END 2019-11-22 23:59 | disposition home or self-care (01) | LOC: LAB.WCP 08:00 | PROVIDERS: ATTEND Family Medicine | DX: I48.91 Unspecified atrial fibrillation (principal); Z79.01 Long term (current) use of anticoagulants ==

== ENCOUNTER 2019-12-04 08:00 | Outpatient (CLI) | payer MEDICARE, OTHER | END 2019-12-04 23:59 | disposition home or self-care (01) | LOC: LAB.R 08:00 | PROVIDERS: ATTEND Family Medicine | DX: N39.0 Urinary tract infection, site not specified (principal) | CPT/HCPCS: 81002; 87086 ==

== ENCOUNTER 2019-12-20 08:00 | Outpatient (CLI) | payer MEDICARE, OTHER | END 2019-12-20 23:59 | disposition home or self-care (01) | LOC: LAB.WCP 08:00 | PROVIDERS: ATTEND Family Medicine | DX: G45.9 Transient cerebral ischemic attack, unspecified (principal); Z79.01 Long term (current) use of anticoagulants; I48.91 Unspecified atrial fibrillation ==

== ENCOUNTER 2020-02-14 13:35 | Outpatient (CLI) | payer MEDICARE, OTHER ==
[2020-02-14 19:12] LABS: CHOL/HDL RATIO 2.8 (<4.4); CHOLESTEROL 175 mg/dL; HDL CHOLESTEROL 63 mg/dL; LDL CHOLESTEROL,CALCULATED 84 mg/dL; LDL/HDL RATIO 1.3 (<4.4); VLDL CHOLESTEROL 28 mg/dL
== END 2020-02-14 13:36 | disposition home or self-care (01) ==
LOC: LAB.WCP 13:35
PROVIDERS: ATTEND Nurse Practitioner
DX: G45.9 Transient cerebral ischemic attack, unspecified (principal); I25.10 Atherosclerotic heart disease of native coronary artery without angina pectoris
CPT/HCPCS: 36415; 80061; 83721

== ENCOUNTER 2020-03-05 08:00 | Outpatient (CLI) | payer MEDICARE, OTHER | END 2020-03-05 23:59 | disposition home or self-care (01) | LOC: LAB.WCP 08:00 | PROVIDERS: ATTEND Family Medicine | DX: I35.9 Nonrheumatic aortic valve disorder, unspecified (principal); Z79.01 Long term (current) use of anticoagulants ==

== ENCOUNTER 2020-03-12 08:00 | Outpatient (CLI) | payer MEDICARE, OTHER ==
[2020-03-12 18:32] LABS: BASOPHILS % (AUTO) 0.5 %; EOSINOPHILS # (AUTO) 0.2 10^3/uL (0.0-0.7); EOSINOPHILS % (AUTO) 2.3 %; HGB - HEMOGLOBIN 12.7 g/dL (12.0-16.0); LYMPHOCYTES # (AUTO) 1.7 10^3/uL (1.5-3.5); LYMPHOCYTES % (AUTO) 22.5 %; MEAN CORPUSCULAR HEMOGLOBIN 28.3 pg (27.0-31.0); MEAN CORPUSCULAR HGB CONC 30.3 g/dL (32.0-36.0); MEAN CORPUSCULAR VOLUME 93.3 fL (81.0-99.0); MEAN PLATELET VOLUME 10.5 fL (7.9-10.8); MONOCYTES # (AUTO) 0.6 10^3/uL (0.0-1.0); NEUTROPHILS # (AUTO) 4.9 10^3/uL (1.5-6.6); NEUTROPHILS % (AUTO) 66.3 %; PLT - PLATELET COUNT 279 10^3/uL (130-450); RED BLOOD COUNT 4.49 10^6/uL (4.20-5.40); RED CELL DISTRIBUTION WIDTH 14.2 % (12.0-15.0); WHITE BLOOD COUNT 7.4 x10^3/uL (4.8-10.8)
[2020-03-12 18:53] LABS: ALBUMIN 4.3 g/dL (3.2-5.5); ALBUMIN/GLOBULIN RATIO 1.2 (1.0-2.2); BILIRUBIN,TOTAL 0.7 mg/dL (0.2-1.0); CALCIUM 9.4 mg/dL (8.5-10.3); CREATININE 1.9 mg/dL (0.4-1.0); TOTAL PROTEIN 7.9 g/dL (6.7-8.2)
== END 2020-03-12 23:59 | disposition home or self-care (01) ==
LOC: LAB.WCP 08:00
PROVIDERS: ATTEND Family Medicine
DX: N18.4 Chronic kidney disease, stage 4 (severe) (principal); E53.8 Deficiency of other specified B group vitamins
CPT/HCPCS: 36415; 80053; 82607; 85025

== ENCOUNTER 2020-03-12 14:15 | Outpatient (CLI) | payer MEDICARE, OTHER | END 2020-03-12 23:59 | disposition home or self-care (01) | LOC: LAB.R 14:15 | PROVIDERS: ATTEND Family Medicine | DX: N39.0 Urinary tract infection, site not specified (principal); Z20.828 Contact with and (suspected) exposure to other viral communicable diseases | CPT/HCPCS: 87086; U0004 ==

== ENCOUNTER 2020-04-03 08:00 | Outpatient (CLI) | payer MEDICARE, OTHER | END 2020-04-03 23:59 | disposition home or self-care (01) | LOC: LAB.WCP 08:00 | PROVIDERS: ATTEND Family Medicine | DX: I35.9 Nonrheumatic aortic valve disorder, unspecified (principal); Z79.01 Long term (current) use of anticoagulants ==

== ENCOUNTER 2020-04-22 08:00 | Outpatient (CLI) | payer MEDICARE, OTHER | END 2020-04-22 23:59 | disposition home or self-care (01) | LOC: LAB.WCP 08:00 | PROVIDERS: ATTEND Family Medicine | DX: I35.9 Nonrheumatic aortic valve disorder, unspecified (principal); Z79.01 Long term (current) use of anticoagulants ==

== ENCOUNTER 2020-05-02 08:00 | Outpatient (CLI) | payer MEDICARE, OTHER | END 2020-05-02 23:59 | disposition home or self-care (01) | LOC: LAB.WCP 08:00 | PROVIDERS: ATTEND Family Medicine | DX: I35.9 Nonrheumatic aortic valve disorder, unspecified (principal); Z79.01 Long term (current) use of anticoagulants ==

== ENCOUNTER 2020-05-30 08:00 | Outpatient (CLI) | payer MEDICARE, OTHER | END 2020-05-30 23:59 | disposition home or self-care (01) | LOC: LAB.WCP 08:00 | PROVIDERS: ATTEND Family Medicine | DX: Z79.01 Long term (current) use of anticoagulants (principal) ==

== ENCOUNTER 2020-06-12 08:00 | Outpatient (CLI) | payer MEDICARE, OTHER ==
[2020-06-12 19:01] LABS: BASOPHILS % (AUTO) 0.5 %; EOSINOPHILS # (AUTO) 0.2 10^3/uL (0.0-0.7); EOSINOPHILS % (AUTO) 3.3 %; LYMPHOCYTES # (AUTO) 1.6 10^3/uL (1.5-3.5); LYMPHOCYTES % (AUTO) 24.8 %; MEAN CORPUSCULAR HEMOGLOBIN 27.8 pg (27.0-31.0); MEAN CORPUSCULAR HGB CONC 29.5 g/dL (32.0-36.0); MEAN CORPUSCULAR VOLUME 94.2 fL (81.0-99.0); MEAN PLATELET VOLUME 10.2 fL (7.9-10.8); MONOCYTES # (AUTO) 0.5 10^3/uL (0.0-1.0); NEUTROPHILS # (AUTO) 4.1 10^3/uL (1.5-6.6); NEUTROPHILS % (AUTO) 63.1 %; PLT - PLATELET COUNT 291 10^3/uL (130-450); RED BLOOD COUNT 5.03 10^6/uL (4.20-5.40); RED CELL DISTRIBUTION WIDTH 13.2 % (12.0-15.0); WHITE BLOOD COUNT 6.4 x10^3/uL (4.8-10.8)
[2020-06-12 19:36] LABS: ALBUMIN 4.3 g/dL (3.2-5.5); ALBUMIN/GLOBULIN RATIO 1.1 (1.0-2.2); ALKALINE PHOSPHATASE 121 IU/L (42-121); ALT ALANINE AMINOTRANSFERASE 17 IU/L (10-60); AST ASPARTATE AMINOTRANSFERASE 20 IU/L (10-42); BILIRUBIN,TOTAL 0.6 mg/dL (0.2-1.0); BUN - BLOOD UREA NITROGEN 26 mg/dL (6-20); CALCIUM 9.3 mg/dL (8.5-10.3); CARBON DIOXIDE - CO2 27 mmol/L (21-32); CHLORIDE 100 mmol/L (101-111); CHOL/HDL RATIO 3.4 (<4.4); CHOLESTEROL 203 mg/dL; GLUCOSE 116 mg/dL (70-100); HDL CHOLESTEROL 60 mg/dL; LDL CHOLESTEROL,CALCULATED 115 mg/dL; LDL/HDL RATIO 1.9 (<4.4); SODIUM 141 mmol/L (135-145); TOTAL PROTEIN 8.1 g/dL (6.7-8.2); VLDL CHOLESTEROL 28 mg/dL
[2020-06-12 19:45] LABS: FERRITIN 455.2 ng/mL (11.0-306.8)
== END 2020-06-12 08:01 | disposition home or self-care (01) ==
LOC: LAB.WCP 08:00
PROVIDERS: ATTEND Family Medicine
DX: N18.4 Chronic kidney disease, stage 4 (severe) (principal); E05.90 Thyrotoxicosis, unspecified without thyrotoxic crisis or storm; D62 Acute posthemorrhagic anemia; E78.5 Hyperlipidemia, unspecified
CPT/HCPCS: 36415; 80053; 80061; 82607; 82728; 83721; 84443; 85025

== ENCOUNTER 2020-06-27 08:00 | Outpatient (CLI) | payer MEDICARE, OTHER | END 2020-06-27 23:59 | disposition home or self-care (01) | LOC: LAB.WCP 08:00 | PROVIDERS: ATTEND Family Medicine | DX: Z79.01 Long term (current) use of anticoagulants (principal) ==

== ENCOUNTER 2020-07-09 08:00 | Outpatient (CLI) | payer MEDICARE, OTHER | END 2020-07-09 23:59 | disposition home or self-care (01) | LOC: LAB.WCP 08:00 | PROVIDERS: ATTEND Family Medicine | DX: Z79.01 Long term (current) use of anticoagulants (principal) ==

== ENCOUNTER 2020-07-28 08:00 | Outpatient (CLI) | payer MEDICARE, OTHER ==
[2020-07-28 20:09] LABS: HGB - HEMOGLOBIN 13.4 g/dL (12.0-16.0); MEAN CORPUSCULAR HEMOGLOBIN 27.5 pg (27.0-31.0); MEAN CORPUSCULAR HGB CONC 29.6 g/dL (32.0-36.0); MEAN CORPUSCULAR VOLUME 92.8 fL (81.0-99.0); MEAN PLATELET VOLUME 10.2 fL (7.9-10.8); RED BLOOD COUNT 4.88 10^6/uL (4.20-5.40); RED CELL DISTRIBUTION WIDTH 13.5 % (12.0-15.0)
[2020-07-28 20:32] LABS: CALCIUM 9.4 mg/dL (8.5-10.3); CREATININE 1.9 mg/dL (0.4-1.0); PHOSPHORUS 4.4 mg/dL (2.5-4.6); URIC ACID 5.8 mg/dL (2.6-7.2)
== END 2020-07-28 23:59 | disposition home or self-care (01) ==
LOC: LAB.WCP 08:00
PROVIDERS: ATTEND Internal Medicine Nephrology
DX: E83.30 Disorder of phosphorus metabolism, unspecified (principal); N25.81 Secondary hyperparathyroidism of renal origin; M10.00 Idiopathic gout, unspecified site; N05.9 Unspecified nephritic syndrome with unspecified morphologic changes; D70.9 Neutropenia, unspecified; D63.1 Anemia in chronic kidney disease; Z79.01 Long term (current) use of anticoagulants; N18.9 Chronic kidney disease, unspecified
CPT/HCPCS: 36415; 80048; 83970; 84100; 84550; 85027

== ENCOUNTER 2020-08-25 08:00 | Outpatient (CLI) | payer MEDICARE, OTHER | END 2020-08-25 23:59 | disposition home or self-care (01) | LOC: LAB.WCP 08:00 | PROVIDERS: ATTEND Family Medicine | DX: Z79.01 Long term (current) use of anticoagulants (principal) ==

== ENCOUNTER 2020-09-03 08:00 | Outpatient (CLI) | payer MEDICARE, OTHER | END 2020-09-03 23:59 | disposition home or self-care (01) | LOC: LAB.N 08:00 | PROVIDERS: ATTEND Family Medicine | DX: Z79.01 Long term (current) use of anticoagulants (principal) ==

== ENCOUNTER 2020-09-19 08:00 | Outpatient (CLI) | payer MEDICARE, OTHER | END 2020-09-19 23:59 | disposition home or self-care (01) | LOC: LAB.N 08:00 | PROVIDERS: ATTEND Family Medicine | DX: Z79.01 Long term (current) use of anticoagulants (principal) ==

== ENCOUNTER 2020-09-26 08:00 | Outpatient (CLI) | payer MEDICARE, OTHER | END 2020-09-26 23:59 | disposition home or self-care (01) | LOC: LAB.WCP 08:00 | PROVIDERS: ATTEND Family Medicine | DX: Z53.9 Procedure and treatment not carried out, unspecified reason (principal); Z79.01 Long term (current) use of anticoagulants ==

== ENCOUNTER 2020-10-13 08:00 | Outpatient (CLI) | payer MEDICARE, OTHER | END 2020-10-13 23:59 | disposition home or self-care (01) | LOC: LAB.N 08:00 | PROVIDERS: ATTEND Family Medicine | DX: I48.91 Unspecified atrial fibrillation (principal); Z79.01 Long term (current) use of anticoagulants ==

== ENCOUNTER 2020-11-10 08:00 | Outpatient (CLI) | payer MEDICARE, OTHER | END 2020-11-10 23:59 | disposition home or self-care (01) | LOC: LAB.N 08:00 | PROVIDERS: ATTEND Family Medicine | DX: Z79.01 Long term (current) use of anticoagulants (principal) ==

== ENCOUNTER 2020-12-10 08:00 | Outpatient (CLI) | payer MEDICARE, OTHER | END 2020-12-10 23:59 | disposition home or self-care (01) | LOC: LAB.N 08:00 | PROVIDERS: ATTEND Family Medicine | DX: I48.91 Unspecified atrial fibrillation (principal); Z79.01 Long term (current) use of anticoagulants; I35.9 Nonrheumatic aortic valve disorder, unspecified ==

== ENCOUNTER 2021-01-14 08:00 | Outpatient (CLI) | payer MEDICARE, OTHER | END 2021-01-14 23:59 | disposition home or self-care (01) | LOC: LAB.N 08:00 | PROVIDERS: ATTEND Family Medicine | DX: I35.9 Nonrheumatic aortic valve disorder, unspecified (principal); G45.9 Transient cerebral ischemic attack, unspecified; I48.91 Unspecified atrial fibrillation; Z79.01 Long term (current) use of anticoagulants ==

== ENCOUNTER 2021-02-02 08:00 | Outpatient (CLI) | payer MEDICARE, OTHER | END 2021-02-02 23:59 | disposition home or self-care (01) | LOC: LAB.N 08:00 | PROVIDERS: ATTEND Family Medicine | DX: I48.0 Paroxysmal atrial fibrillation (principal); Z79.01 Long term (current) use of anticoagulants ==

== ENCOUNTER 2021-02-11 12:56 | Outpatient (CLI) | payer MEDICARE, OTHER ==
--- NOTE | 2021-02-12 14:22 | Mammography Report ---
BILATERAL DIGITAL SCREENING MAMMOGRAM 3D/2D: 02/11/2021 CLINICAL: Routine screening. Comparison is made to exams dated: 10/31/2015 mammogram and 02/05/2014 mammogram - [facility]. There are scattered fibroglandular elements in both breasts. No significant masses, calcifications, or other findings are seen in either breast. There has been no significant interval change. IMPRESSION: NEGATIVE There is no mammographic evidence of malignancy. A 1 year screening mammogram is recommended. This exam was interpreted at Station ID: [id number]. NOTE: For mammograms, a report in lay terms will be sent to the patient. Approximately 15% of breast malignancies will not be visualized mammographically. In the management of a palpable breast mass, a negative mammogram must not discourage biopsy of a clinically suspicious lesion. Electronically Signed By: Kurtis Valdez M.D. [facility] [place]:02/11/2021 16:25:07 ACR BI-RADS Category 1: Negative 3341F PARENCHYMAL PATTERN: (A) - The breast(s) demonstrate(s) scattered fibroglandular densities. BI-RADS CATEGORY: (1) - 1 RECOMMENDATION: (ANNUAL) - Recommend routine annual screening mammography. [id number] 1 year screening LATERALITY: (B)
== END 2021-02-11 12:57 | disposition home or self-care (01) ==
LOC: DI 12:56
DX: Z12.31 Encounter for screening mammogram for malignant neoplasm of breast (principal)

== ENCOUNTER 2021-03-04 08:00 | Outpatient (CLI) | payer MEDICARE, OTHER | END 2021-03-04 23:59 | disposition home or self-care (01) | LOC: LAB.N 08:00 | PROVIDERS: ATTEND Family Medicine | DX: I35.9 Nonrheumatic aortic valve disorder, unspecified (principal); Z79.01 Long term (current) use of anticoagulants; I48.0 Paroxysmal atrial fibrillation; G45.9 Transient cerebral ischemic attack, unspecified ==

== ENCOUNTER 2021-04-01 08:00 | Outpatient (CLI) | payer MEDICARE, OTHER | END 2021-04-01 23:59 | disposition home or self-care (01) | LOC: LAB.N 08:00 | PROVIDERS: ATTEND Family Medicine | DX: I35.9 Nonrheumatic aortic valve disorder, unspecified (principal); Z79.01 Long term (current) use of anticoagulants; I48.91 Unspecified atrial fibrillation ==

== ENCOUNTER 2021-05-01 08:00 | Outpatient (CLI) | payer MEDICARE, OTHER | END 2021-05-01 23:59 | disposition home or self-care (01) | LOC: LAB.WCP 08:00 | PROVIDERS: ATTEND Family Medicine | DX: I35.9 Nonrheumatic aortic valve disorder, unspecified (principal); Z79.01 Long term (current) use of anticoagulants; G45.9 Transient cerebral ischemic attack, unspecified; I48.91 Unspecified atrial fibrillation ==

== ENCOUNTER 2021-05-29 13:20 | Outpatient (CLI) | payer MEDICARE, OTHER ==
[2021-05-29 18:14] LABS: HCT - HEMATOCRIT 43.6 % (37.0-47.0); HGB - HEMOGLOBIN 13.3 g/dL (12.0-16.0); MEAN CORPUSCULAR HEMOGLOBIN 27.7 pg (27.0-31.0); MEAN CORPUSCULAR HGB CONC 30.5 g/dL (32.0-36.0); MEAN CORPUSCULAR VOLUME 90.6 fL (81.0-99.0); MEAN PLATELET VOLUME 10.8 fL (7.9-10.8); RED BLOOD COUNT 4.81 10^6/uL (4.20-5.40); RED CELL DISTRIBUTION WIDTH 14.2 % (12.0-15.0); WHITE BLOOD COUNT 6.2 x10^3/uL (4.8-10.8)
[2021-05-29 18:46] LABS: CALCIUM 9.3 mg/dL (8.5-10.3); CREATININE 1.8 mg/dL (0.4-1.0); PHOSPHORUS 3.9 mg/dL (2.5-4.6); POTASSIUM 4.3 mmol/L (3.5-5.0); URIC ACID 6.7 mg/dL (2.6-7.2)
== END 2021-05-29 13:21 | disposition home or self-care (01) ==
LOC: LAB.N 13:20
PROVIDERS: ATTEND Internal Medicine Nephrology
DX: N05.9 Unspecified nephritic syndrome with unspecified morphologic changes (principal); D70.9 Neutropenia, unspecified; D63.1 Anemia in chronic kidney disease; E83.30 Disorder of phosphorus metabolism, unspecified; N25.81 Secondary hyperparathyroidism of renal origin; M10.00 Idiopathic gout, unspecified site
CPT/HCPCS: 36415; 80048; 83970; 84100; 84550; 85027

== ENCOUNTER 2021-06-08 10:48 | Outpatient (CLI) | payer MEDICARE, OTHER ==
[2021-06-08 18:13] LABS: BASOPHILS % (AUTO) 0.6 %; EOSINOPHILS # (AUTO) 0.2 10^3/uL (0.0-0.7); EOSINOPHILS % (AUTO) 2.4 %; HCT - HEMATOCRIT 44.5 % (37.0-47.0); HGB - HEMOGLOBIN 13.5 g/dL (12.0-16.0); LYMPHOCYTES # (AUTO) 1.3 10^3/uL (1.5-3.5); LYMPHOCYTES % (AUTO) 20.8 %; MEAN CORPUSCULAR HEMOGLOBIN 27.9 pg (27.0-31.0); MEAN CORPUSCULAR HGB CONC 30.3 g/dL (32.0-36.0); MEAN CORPUSCULAR VOLUME 91.9 fL (81.0-99.0); MEAN PLATELET VOLUME 10.6 fL (7.9-10.8); MONOCYTES # (AUTO) 0.5 10^3/uL (0.0-1.0); MONOCYTES % (AUTO) 7.7 %; NEUTROPHILS # (AUTO) 4.3 10^3/uL (1.5-6.6); NEUTROPHILS % (AUTO) 68.2 %; PLT - PLATELET COUNT 269 10^3/uL (130-450); RED BLOOD COUNT 4.84 10^6/uL (4.20-5.40); RED CELL DISTRIBUTION WIDTH 14.3 % (12.0-15.0); WHITE BLOOD COUNT 6.3 x10^3/uL (4.8-10.8)
[2021-06-08 18:38] LABS: ALBUMIN 4.3 g/dL (3.2-5.5); ALBUMIN/GLOBULIN RATIO 1.1 (1.0-2.2); ALKALINE PHOSPHATASE 108 IU/L (42-121); ALT ALANINE AMINOTRANSFERASE 20 IU/L (10-60); AST ASPARTATE AMINOTRANSFERASE 22 IU/L (10-42); BILIRUBIN,TOTAL 0.9 mg/dL (0.2-1.0); BUN - BLOOD UREA NITROGEN 29 mg/dL (6-20); CALCIUM 9.3 mg/dL (8.5-10.3); CARBON DIOXIDE - CO2 28 mmol/L (21-32); CHLORIDE 101 mmol/L (101-111); CHOL/HDL RATIO 3.3 (<4.4); CHOLESTEROL 212 mg/dL; CREATININE 1.9 mg/dL (0.4-1.0); GFR - MDRD 26 (>89); GLUCOSE 108 mg/dL (70-100); HDL CHOLESTEROL 65 mg/dL; LDL CHOLESTEROL,CALCULATED 119 mg/dL; LDL/HDL RATIO 1.8 (<4.4); POTASSIUM 4.4 mmol/L (3.5-5.0); SODIUM 139 mmol/L (135-145); TOTAL PROTEIN 8.3 g/dL (6.7-8.2); TRIGLYCERIDES 141 mg/dL; VLDL CHOLESTEROL 28 mg/dL
[2021-06-08 18:55] LABS: THYROID STIMULATING HORMONE 1.1 uIU/mL (0.34-5.60)
[2021-06-08 20:22] LABS: ESTIMATED AVERAGE GLUCOSE 105 mg/dL (70-100); HEMOGLOBIN A1c% 5.3 % (4.27-6.07)
== END 2021-06-08 23:59 | disposition home or self-care (01) ==
LOC: LAB.WCP 10:48
PROVIDERS: ATTEND Family Medicine
DX: I10 Essential (primary) hypertension (principal); R73.01 Impaired fasting glucose; E05.90 Thyrotoxicosis, unspecified without thyrotoxic crisis or storm
CPT/HCPCS: 36415; 80053; 80061; 83036; 83721; 84443; 85025

== ENCOUNTER 2021-07-03 08:00 | Outpatient (CLI) | payer MEDICARE, OTHER | END 2021-07-03 23:59 | disposition home or self-care (01) | LOC: LAB.WCP 08:00 | PROVIDERS: ATTEND Family Medicine | DX: I48.0 Paroxysmal atrial fibrillation (principal); Z79.01 Long term (current) use of anticoagulants; G45.9 Transient cerebral ischemic attack, unspecified ==

== ENCOUNTER 2021-09-11 08:00 | Outpatient (CLI) | payer MEDICARE, OTHER | END 2021-09-11 23:59 | disposition home or self-care (01) | LOC: LAB.N 08:00 | PROVIDERS: ATTEND Family Medicine | DX: Z79.01 Long term (current) use of anticoagulants (principal); G45.9 Transient cerebral ischemic attack, unspecified; I48.0 Paroxysmal atrial fibrillation ==

== ENCOUNTER 2021-09-18 08:00 | Outpatient (CLI) | payer MEDICARE, OTHER | END 2021-09-18 23:59 | disposition home or self-care (01) | LOC: LAB.N 08:00 | PROVIDERS: ATTEND Family Medicine | DX: Z79.01 Long term (current) use of anticoagulants (principal); I35.9 Nonrheumatic aortic valve disorder, unspecified; G45.9 Transient cerebral ischemic attack, unspecified; I48.91 Unspecified atrial fibrillation ==

== ENCOUNTER 2021-10-05 08:00 | Outpatient (CLI) | payer MEDICARE, OTHER | END 2021-10-05 23:59 | disposition home or self-care (01) | LOC: LAB.N 08:00 | PROVIDERS: ATTEND Family Medicine | DX: I35.9 Nonrheumatic aortic valve disorder, unspecified (principal); Z79.01 Long term (current) use of anticoagulants; G45.9 Transient cerebral ischemic attack, unspecified; I48.91 Unspecified atrial fibrillation ==

== ENCOUNTER 2021-10-14 13:13 | Outpatient (CLI) | payer MEDICARE, OTHER ==
--- NOTE | 2021-10-14 15:31 | XRAY Report ---
PROCEDURE: Chest 2 View X-Ray INDICATIONS: R SIDE RIB PX TECHNIQUE: 2 view(s) of the chest. COMPARISON: September 05, 2018. FINDINGS: SUPPORT DEVICES: Sternotomy wires and valve prosthesis are again seen. Post CABG change again noted LUNGS/PLEURA: No focal consolidation, pleural effusion or space-occupying pneumothorax. MEDIASTINUM: The cardiomediastinal silhouette is within normal limits. BONES/SOFT TISSUES: No acute abnormality. IMPRESSION: 1.No acute cardiopulmonary abnormality. Reviewed by: Ming Parker MD on 10/14/2021 3:29 PM PST Approved by: Ming Parker MD on 10/14/2021 3:29 PM PST Station ID: [id number]
--- NOTE | 2021-10-14 15:44 | XRAY Report ---
PROCEDURE: Knee 4 View RT INDICATIONS: ARTHRITIS, R KNEE TECHNIQUE: 4 views of the right knee(s) were acquired. COMPARISON: None. FINDINGS: Bones: No fractures or dislocations. Tricompartmental degenerative changes with medial joint space n arrowing. No suspicious bony lesions. Soft tissues: No joint effusion. No suspicious soft tissue calcifications. IMPRESSION: Tricompartmental degenerative changes consistent with osteoarthritis with medial joint s pace narrowing. Reviewed by: Kenny Barajas on 10/14/2021 3:42 PM PST Approved by: Kenny Barajas on 10/14/2021 3:42 PM PST Station ID: [id number]
--- NOTE | 2021-10-14 16:13 | XRAY Report ---
PROCEDURE: Foot 3 View RT INDICATIONS: R FOOT PX TECHNIQUE: 3 views of the foot were acquired. COMPARISON: None FINDINGS: Bones: No fractures or dislocations. No suspicious bony lesions. Metatarsus primus varus. Joint sp ellie narrowing and periarticular osteophyte formation at the first metatarsophalangeal joint, as well as the interphalangeal joints of the digits. Soft tissues: No tibiotalar joint effusion. Achilles tendon appears normal. IMPRESSION: Osteoarthritis. No acute fracture. No osseous lesion. If symptoms and/or clinical suspicion for patho logy continue, further assessment with repeat plain films, or advanced imaging (e.g., CT, MRI, or bon e scan) is recommended for further assessment. Reviewed by: Javid Soto MD on 10/14/2021 4:12 PM PST Approved by: Javid Soto MD on 10/14/2021 4:12 PM PST Station ID: [id number]
== END 2021-10-14 13:14 | disposition home or self-care (01) ==
LOC: DI.N 13:13
PROVIDERS: ATTEND Family Medicine
DX: R07.81 Pleurodynia (principal); M19.071 Primary osteoarthritis, right ankle and foot; M17.11 Unilateral primary osteoarthritis, right knee; D62 Acute posthemorrhagic anemia; I10 Essential (primary) hypertension; E05.90 Thyrotoxicosis, unspecified without thyrotoxic crisis or storm
CPT/HCPCS: 36415; 80053; 80061; 83721; 84443; 85025

== ENCOUNTER 2021-10-14 13:18 | Outpatient (CLI) | payer MEDICARE, OTHER ==
[2021-10-14 18:40] LABS: BASOPHILS % (AUTO) 0.7 %; EOSINOPHILS # (AUTO) 0.1 10^3/uL (0.0-0.7); EOSINOPHILS % (AUTO) 2.2 %; HCT - HEMATOCRIT 44.3 % (37.0-47.0); HGB - HEMOGLOBIN 13.7 g/dL (12.0-16.0); LYMPHOCYTES # (AUTO) 1.3 10^3/uL (1.5-3.5); LYMPHOCYTES % (AUTO) 21.1 %; MEAN CORPUSCULAR HEMOGLOBIN 28.1 pg (27.0-31.0); MEAN CORPUSCULAR HGB CONC 30.9 g/dL (32.0-36.0); MEAN PLATELET VOLUME 10.7 fL (7.9-10.8); MONOCYTES # (AUTO) 0.6 10^3/uL (0.0-1.0); MONOCYTES % (AUTO) 10.3 %; NEUTROPHILS # (AUTO) 3.9 10^3/uL (1.5-6.6); NEUTROPHILS % (AUTO) 65.2 %; PLT - PLATELET COUNT 268 10^3/uL (130-450); RED BLOOD COUNT 4.87 10^6/uL (4.20-5.40); RED CELL DISTRIBUTION WIDTH 13.3 % (12.0-15.0); WHITE BLOOD COUNT 5.9 x10^3/uL (4.8-10.8)
[2021-10-14 19:50] LABS: ALBUMIN 4.1 g/dL (3.2-5.5); ALKALINE PHOSPHATASE 101 IU/L (42-121); ALT ALANINE AMINOTRANSFERASE 17 IU/L (10-60); AST ASPARTATE AMINOTRANSFERASE 21 IU/L (10-42); BILIRUBIN,TOTAL 0.6 mg/dL (0.2-1.0); BUN - BLOOD UREA NITROGEN 32 mg/dL (6-20); CALCIUM 9.2 mg/dL (8.5-10.3); CARBON DIOXIDE - CO2 27 mmol/L (21-32); CHLORIDE 100 mmol/L (101-111); CHOL/HDL RATIO 2.8 (<4.4); CHOLESTEROL 180 mg/dL; CREATININE 1.9 mg/dL (0.4-1.0); GFR - MDRD 26 (>89); GLUCOSE 102 mg/dL (70-100); HDL CHOLESTEROL 65 mg/dL; LDL CHOLESTEROL,CALCULATED 88 mg/dL; LDL/HDL RATIO 1.4 (<4.4); POTASSIUM 3.7 mmol/L (3.5-5.0); SODIUM 139 mmol/L (135-145); TOTAL PROTEIN 8.2 g/dL (6.7-8.2); TRIGLYCERIDES 137 mg/dL; VLDL CHOLESTEROL 27 mg/dL
[2021-10-14 20:04] LABS: THYROID STIMULATING HORMONE 1.02 uIU/mL (0.34-5.60)
== END 2021-10-14 13:19 | disposition home or self-care (01) ==
LOC: LAB.N 13:18
PROVIDERS: ATTEND Family Medicine
DX: D62 Acute posthemorrhagic anemia (principal); I10 Essential (primary) hypertension; E05.90 Thyrotoxicosis, unspecified without thyrotoxic crisis or storm
CPT/HCPCS: 36415; 80053; 80061; 83721; 84443; 85025

== ENCOUNTER 2021-10-28 08:00 | Outpatient (CLI) | payer MEDICARE, OTHER | END 2021-10-28 23:59 | disposition home or self-care (01) | LOC: LAB.N 08:00 | PROVIDERS: ATTEND Family Medicine | DX: I35.9 Nonrheumatic aortic valve disorder, unspecified (principal); Z79.01 Long term (current) use of anticoagulants; G45.9 Transient cerebral ischemic attack, unspecified; I48.91 Unspecified atrial fibrillation ==

== ENCOUNTER 2021-11-09 08:00 | Outpatient (CLI) | payer MEDICARE, OTHER | END 2021-11-09 23:59 | LOC: LAB.N 08:00 | PROVIDERS: ATTEND Physician Assistant Medical | DX: U07.1 COVID-19 (principal) ==

== ENCOUNTER 2021-12-22 08:00 | Outpatient (CLI) | payer MEDICARE, OTHER ==
--- NOTE | 2021-12-22 14:06 | XRAY Report ---
PROCEDURE: Ribs w/PA Chest LT INDICATIONS: CONTUSION OF L FRONT WALL OF THORAX TECHNIQUE: 3 views of the left ribs were acquired, along with a single view chest. COMPARISON: Chest x-ray 10/14/2021 FINDINGS: Surgical changes and devices: Sternal wires as well as valve replacement are noted. Bones and chest wall: No fractures or dislocations. No suspicious bony lesions. Overlying soft tis sues appear unremarkable. Lungs and pleura: No pleural effusions or pneumothorax. Lungs appear clear. Mediastinum: Mediastinal contours appear normal. Heart size is enlarged. IMPRESSION: No acute pulmonary process. No visualized acute fracture or dislocation. However, occult injury canno t be excluded. Recommend short interval imaging follow-up in 7-10 days as clinically indicated for ad ditional evaluation. Reviewed by: Genny De Los Santos MD on 12/22/2021 1:05 PM BRITTANY Approved by: Genny De Los Santos MD on 12/22/2021 1:05 PM BRITTANY Station ID: [id number]
== END 2021-12-22 23:59 | disposition home or self-care (01) ==
LOC: DI.N 08:00
PROVIDERS: ATTEND Physician Assistant
DX: S20.212A Contusion of left front wall of thorax, initial encounter (principal)

== ENCOUNTER 2021-12-23 10:12 | Outpatient (CLI) | payer MEDICARE, OTHER ==
[2021-12-23 11:58] LABS: BASOPHILS # (AUTO) 0.1 10^3/uL (0.0-0.1); BASOPHILS % (AUTO) 0.6 %; EOSINOPHILS # (AUTO) 0.2 10^3/uL (0.0-0.7); EOSINOPHILS % (AUTO) 2.2 %; HCT - HEMATOCRIT 40.5 % (37.0-47.0); HGB - HEMOGLOBIN 12.8 g/dL (12.0-16.0); LYMPHOCYTES # (AUTO) 1.2 10^3/uL (1.5-3.5); LYMPHOCYTES % (AUTO) 12.5 %; MEAN CORPUSCULAR HEMOGLOBIN 28.4 pg (27.0-31.0); MEAN CORPUSCULAR HGB CONC 31.6 g/dL (32.0-36.0); MEAN PLATELET VOLUME 9.9 fL (7.9-10.8); MONOCYTES # (AUTO) 0.7 10^3/uL (0.0-1.0); MONOCYTES % (AUTO) 6.9 %; NEUTROPHILS # (AUTO) 7.7 10^3/uL (1.5-6.6); PLT - PLATELET COUNT 373 10^3/uL (130-450); RED CELL DISTRIBUTION WIDTH 13.9 % (12.0-15.0)
[2021-12-23 12:20] LABS: ALBUMIN 3.7 g/dL (3.2-5.5); ALBUMIN/GLOBULIN RATIO 0.7 (1.0-2.2); BILIRUBIN,TOTAL 0.6 mg/dL (0.2-1.0); CALCIUM 9.4 mg/dL (8.5-10.3); CREATININE 2.2 mg/dL (0.4-1.0); POTASSIUM 3.9 mmol/L (3.5-5.0); TOTAL PROTEIN 8.9 g/dL (6.7-8.2)
[2021-12-23 12:30] LABS: THYROID STIMULATING HORMONE 2.03 uIU/mL (0.34-5.60)
[2021-12-23 12:50] LABS: ESTIMATED AVERAGE GLUCOSE 105 mg/dL (70-100); HEMOGLOBIN A1c% 5.3 % (4.27-6.07)
== END 2021-12-23 10:13 | disposition home or self-care (01) ==
LOC: LAB.N 10:12
PROVIDERS: ATTEND Internal Medicine
DX: I50.813 Acute on chronic right heart failure (principal); R73.01 Impaired fasting glucose; E05.90 Thyrotoxicosis, unspecified without thyrotoxic crisis or storm
CPT/HCPCS: 36415; 80053; 83036; 83880; 84443; 85025

== ENCOUNTER 2022-01-22 08:00 | Outpatient (CLI) | payer MEDICARE, OTHER | END 2022-01-22 23:59 | disposition home or self-care (01) | LOC: LAB.WCP 08:00 | PROVIDERS: ATTEND Family Medicine | DX: Z53.9 Procedure and treatment not carried out, unspecified reason (principal) ==

== ENCOUNTER → 2022-02-24 | Outpatient (CLI) | payer MEDICARE, OTHER | LOC: LAB.N 08:00 | PROVIDERS: ATTEND Family Medicine | DX: I35.9 Nonrheumatic aortic valve disorder, unspecified (principal); I48.91 Unspecified atrial fibrillation; G45.9 Transient cerebral ischemic attack, unspecified; Z79.01 Long term (current) use of anticoagulants ==

== ENCOUNTER 2022-04-21 13:31 | Outpatient (CLI) | payer MEDICARE, OTHER ==
[2022-04-21 17:41] LABS: BASOPHILS % (AUTO) 0.4 %; EOSINOPHILS # (AUTO) 0.1 10^3/uL (0.0-0.7); EOSINOPHILS % (AUTO) 1.5 %; HCT - HEMATOCRIT 43.8 % (37.0-47.0); HGB - HEMOGLOBIN 13.6 g/dL (12.0-16.0); LYMPHOCYTES # (AUTO) 1.5 10^3/uL (1.5-3.5); LYMPHOCYTES % (AUTO) 21.5 %; MEAN CORPUSCULAR HEMOGLOBIN 28.2 pg (27.0-31.0); MEAN CORPUSCULAR HGB CONC 31.1 g/dL (32.0-36.0); MEAN CORPUSCULAR VOLUME 90.7 fL (81.0-99.0); MEAN PLATELET VOLUME 10.4 fL (7.9-10.8); MONOCYTES # (AUTO) 0.6 10^3/uL (0.0-1.0); MONOCYTES % (AUTO) 8.8 %; NEUTROPHILS # (AUTO) 4.8 10^3/uL (1.5-6.6); NEUTROPHILS % (AUTO) 67.4 %; PLT - PLATELET COUNT 251 10^3/uL (130-450); RED BLOOD COUNT 4.83 10^6/uL (4.20-5.40); RED CELL DISTRIBUTION WIDTH 13.7 % (12.0-15.0); WHITE BLOOD COUNT 7.2 x10^3/uL (4.8-10.8)
[2022-04-21 17:50] LABS: ALBUMIN 4.4 g/dL (3.2-5.5); ALBUMIN/GLOBULIN RATIO 1.1 (1.0-2.2); BILIRUBIN,TOTAL 0.4 mg/dL (0.2-1.0); CALCIUM 9.5 mg/dL (8.5-10.3); POTASSIUM 4.9 mmol/L (3.5-5.0); TOTAL PROTEIN 8.3 g/dL (6.7-8.2)
== END 2022-04-21 13:32 | disposition home or self-care (01) ==
LOC: LAB.N 13:31
PROVIDERS: ATTEND Physician Assistant
DX: R53.83 Other fatigue (principal); R94.4 Abnormal results of kidney function studies
CPT/HCPCS: 36415; 80053; 85025

== ENCOUNTER → 2022-05-19 | Outpatient (CLI) | payer MEDICARE, OTHER | LOC: LAB.WCP 08:00 | PROVIDERS: ATTEND Family Medicine | DX: I48.0 Paroxysmal atrial fibrillation (principal); I35.9 Nonrheumatic aortic valve disorder, unspecified; Z79.01 Long term (current) use of anticoagulants; G45.9 Transient cerebral ischemic attack, unspecified ==

== ENCOUNTER 2022-05-29 09:43 | Outpatient (CLI) | payer MEDICARE, OTHER | END 2022-05-29 09:44 | disposition home or self-care (01) | LOC: LAB.N 09:43 | PROVIDERS: ATTEND Registered Nurse | DX: Z01.812 Encounter for preprocedural laboratory examination (principal); Z20.822 Contact with and (suspected) exposure to COVID-19 ==

== ENCOUNTER → 2022-06-30 | Outpatient (CLI) | payer MEDICARE, OTHER | LOC: LAB.WCP 08:00 | PROVIDERS: ATTEND Physician Assistant | DX: I35.9 Nonrheumatic aortic valve disorder, unspecified (principal); I48.0 Paroxysmal atrial fibrillation; G45.9 Transient cerebral ischemic attack, unspecified; Z79.01 Long term (current) use of anticoagulants ==

== ENCOUNTER 2022-08-02 08:00 | Outpatient (CLI) | payer MEDICARE, OTHER | END 2022-08-02 23:59 | disposition home or self-care (01) | LOC: LAB.WCP 08:00 | PROVIDERS: ATTEND Physician Assistant | DX: I48.91 Unspecified atrial fibrillation (principal); I35.9 Nonrheumatic aortic valve disorder, unspecified; G45.9 Transient cerebral ischemic attack, unspecified; Z79.01 Long term (current) use of anticoagulants ==

== ENCOUNTER 2022-10-13 16:41 | Outpatient (CLI) | payer MEDICARE, OTHER ==
[2022-10-13 17:46] LABS: BASOPHILS % (AUTO) 0.3 %; EOSINOPHILS # (AUTO) 0.1 10^3/uL (0.0-0.7); EOSINOPHILS % (AUTO) 1.2 %; HCT - HEMATOCRIT 46.1 % (37.0-47.0); LYMPHOCYTES # (AUTO) 1.5 10^3/uL (1.5-3.5); MEAN CORPUSCULAR HEMOGLOBIN 27.9 pg (27.0-31.0); MEAN CORPUSCULAR HGB CONC 30.4 g/dL (32.0-36.0); MEAN PLATELET VOLUME 9.3 fL (7.9-10.8); MONOCYTES # (AUTO) 0.4 10^3/uL (0.0-1.0); MONOCYTES % (AUTO) 6.2 %; NEUTROPHILS # (AUTO) 4.3 10^3/uL (1.5-6.6); NEUTROPHILS % (AUTO) 67.8 %; PLT - PLATELET COUNT 286 10^3/uL (130-450); RED BLOOD COUNT 5.01 10^6/uL (4.20-5.40); RED CELL DISTRIBUTION WIDTH 13.2 % (12.0-15.0); WHITE BLOOD COUNT 6.4 x10^3/uL (4.8-10.8)
[2022-10-13 18:06] LABS: ALBUMIN 4.2 g/dL (3.2-5.5); ALKALINE PHOSPHATASE 94 IU/L (42-121); ALT ALANINE AMINOTRANSFERASE 29 IU/L (10-60); AST ASPARTATE AMINOTRANSFERASE 31 IU/L (10-42); BILIRUBIN,TOTAL 0.6 mg/dL (0.2-1.0); BUN - BLOOD UREA NITROGEN 35 mg/dL (6-20); CALCIUM 9.3 mg/dL (8.5-10.3); CARBON DIOXIDE - CO2 24 mmol/L (21-32); CHLORIDE 101 mmol/L (101-111); CHOLESTEROL 184 mg/dL; CREATININE 1.9 mg/dL (0.4-1.0); GFR - MDRD 26 (>89); GLUCOSE 115 mg/dL (70-100); HDL CHOLESTEROL 62 mg/dL; LDL CHOLESTEROL,CALCULATED 101 mg/dL; LDL/HDL RATIO 1.6 (<4.4); POTASSIUM 4.5 mmol/L (3.5-5.0); SODIUM 137 mmol/L (135-145); TOTAL PROTEIN 8.6 g/dL (6.7-8.2); TRIGLYCERIDES 105 mg/dL; VLDL CHOLESTEROL 21 mg/dL
[2022-10-13 18:14] LABS: THYROID STIMULATING HORMONE 1.14 uIU/mL (0.34-5.60)
[2022-10-13 20:21] LABS: ESTIMATED AVERAGE GLUCOSE 108 mg/dL (70-100); HEMOGLOBIN A1c% 5.4 % (4.27-6.07)
--- NOTE | 2022-10-14 16:28 | XRAY Report ---
PROCEDURE: Ribs w/PA Chest LT INDICATIONS: COUGH TECHNIQUE: 2 views of the right ribs were acquired, along with a single view chest. COMPARISON: 12/22/2021 FINDINGS: Surgical changes and devices: None. Bones and chest wall: No fractures or dislocations. No suspicious bony lesions. Overlying soft tis sues appear unremarkable. Lungs and pleura: No pleural effusions or pneumothorax. Lungs appear clear. Mediastinum: Mediastinal contours appear normal. Heart size is normal. IMPRESSION: No acute fracture. No osseous lesion. If symptoms and/or clinical suspicion for pathology continue, f urther assessment with repeat plain films, or advanced imaging (e.g., CT, MRI, or bone scan) is recom mended for further assessment. Reviewed by: Javid Soto MD on 10/14/2022 4:26 PM PST Approved by: Javid Soto MD on 10/14/2022 4:26 PM PST Station ID: [id number]
== END 2022-10-13 16:42 | disposition home or self-care (01) ==
LOC: LAB 16:41
PROVIDERS: ATTEND Physician Assistant
DX: I50.9 Heart failure, unspecified (principal); R73.01 Impaired fasting glucose; S20.212A Contusion of left front wall of thorax, initial encounter
CPT/HCPCS: 36415; 80053; 80061; 83036; 83721; 84443; 85025

== ENCOUNTER 2022-11-03 08:00 | Outpatient (CLI) | payer MEDICARE, OTHER | END 2022-11-03 23:59 | disposition home or self-care (01) | LOC: LAB.WCP 08:00 | PROVIDERS: ATTEND Physician Assistant | DX: Z79.01 Long term (current) use of anticoagulants (principal); I35.9 Nonrheumatic aortic valve disorder, unspecified; I48.91 Unspecified atrial fibrillation ==

== ENCOUNTER 2022-12-08 13:23 | Outpatient (CLI) | payer MEDICARE, OTHER ==
[2022-12-08 17:55] LABS: CALCIUM 8.8 mg/dL (8.5-10.3); CREATININE 1.7 mg/dL (0.4-1.0); POTASSIUM 4.4 mmol/L (3.5-5.0)
== END 2022-12-08 13:24 | disposition home or self-care (01) ==
LOC: LAB.N 13:23
PROVIDERS: ATTEND Internal Medicine Nephrology
DX: N05.9 Unspecified nephritic syndrome with unspecified morphologic changes (principal); E83.30 Disorder of phosphorus metabolism, unspecified; N25.81 Secondary hyperparathyroidism of renal origin
CPT/HCPCS: 36415; 80048; 83970; 84100

== ENCOUNTER 2022-12-22 13:33 | Outpatient (CLI) | payer MEDICARE, OTHER ==
--- NOTE | 2022-12-23 10:16 | Mammography Report ---
BILATERAL DIGITAL SCREENING MAMMOGRAM 3D/2D: 12/22/2022 CLINICAL: Routine screening. Comparison is made to exams dated: 02/11/2021 mammogram, 10/31/2015 mammogram, and [facility] There are scattered areas of fibroglandular density in both breasts (category b / 25%-50% glandular t issue). No significant masses, calcifications, or other findings are seen in either breast. There has been no significant interval change. IMPRESSION: NEGATIVE There is no mammographic evidence of malignancy. A 1 year screening mammogram is recommended. Based on the Tyrer Cuzick model (a risk assessment model) the patients lifetime risk is 5.4% and her 10 year risk is 3.7%. According to the ACR, ACS, and NCCN guidelines, an annual breast MRI exam keenan g with mammogram is recommended if the patients lifetime risk is 20% or greater. This exam was interpreted at Station ID: [id number]. NOTE: For mammograms, a report in lay terms will be sent to the patient. Approximately 15% of breast malignancies will not be visualized mammographically. In the management of a palpable breast mass, a negative mammogram must not discourage biopsy of a clinically suspicious lesion. Electronically Signed By: Kurtis monroy/lee:12/23/2022 07:44:16 letter sent: No_Letter ACR BI-RADS Category 1: Negative 3341F PARENCHYMAL PATTERN: (A) - The breast(s) demonstrate(s) scattered fibroglandular densities. BI-RADS CATEGORY: (1) - 1 Mammogram [id number] 1 year screening LATERALITY: (B)
== END 2022-12-22 13:34 | disposition home or self-care (01) ==
LOC: DI.N 13:33
DX: Z12.31 Encounter for screening mammogram for malignant neoplasm of breast (principal)

== ENCOUNTER 2023-01-05 08:00 | Outpatient (CLI) | payer MEDICARE, OTHER | END 2023-01-05 23:59 | disposition home or self-care (01) | LOC: LAB.WCP 08:00 | PROVIDERS: ATTEND Physician Assistant | DX: Z79.01 Long term (current) use of anticoagulants (principal); I35.9 Nonrheumatic aortic valve disorder, unspecified; G45.9 Transient cerebral ischemic attack, unspecified; I48.91 Unspecified atrial fibrillation ==

== ENCOUNTER 2023-01-19 08:00 | Outpatient (CLI) | payer MEDICARE, OTHER | END 2023-01-19 23:59 | disposition home or self-care (01) | LOC: LAB.WCP 08:00 | PROVIDERS: ATTEND Family Medicine | DX: Z79.01 Long term (current) use of anticoagulants (principal); I35.9 Nonrheumatic aortic valve disorder, unspecified; I48.91 Unspecified atrial fibrillation ==

== ENCOUNTER 2023-02-16 08:00 | Outpatient (CLI) | payer MEDICARE, OTHER | END 2023-02-16 23:59 | disposition home or self-care (01) | LOC: LAB.WCP 08:00 | PROVIDERS: ATTEND Physician Assistant | DX: Z79.01 Long term (current) use of anticoagulants (principal); I35.9 Nonrheumatic aortic valve disorder, unspecified; G45.9 Transient cerebral ischemic attack, unspecified; I48.91 Unspecified atrial fibrillation ==

== ENCOUNTER 2023-03-18 08:00 | Outpatient (CLI) | payer MEDICARE, OTHER | END 2023-03-18 23:59 | disposition home or self-care (01) | LOC: LAB.WCP 08:00 | PROVIDERS: ATTEND Physician Assistant | DX: Z79.01 Long term (current) use of anticoagulants (principal); I35.9 Nonrheumatic aortic valve disorder, unspecified; I48.91 Unspecified atrial fibrillation ==

== ENCOUNTER 2023-05-23 10:35 | Outpatient (CLI) | payer MEDICARE, OTHER ==
--- NOTE | 2023-05-23 11:43 | XRAY Report ---
PROCEDURE: Chest 2 View X-Ray INDICATIONS: ACUTE UPPER RESPIRATORY INFECTION TECHNIQUE: 2 views of the chest were acquired. COMPARISON: Chest x-ray, 10/14/2021. FINDINGS: Surgical changes and devices: Sternotomy. Mitral valve and aortic valve replacement. Lungs and pleura: Mild bilateral interstitial prominence. No focal consolidation. No pleural effusio ns or pneumothorax. Mediastinum: Mediastinal contours appear normal. Heart size is moderately increased. Bones and chest wall: No suspicious bony lesions. Overlying soft tissues appear unremarkable. IMPRESSION: 1. No acute cardiopulmonary process. 2. Moderate cardiomegaly. 3. Mitral valve and aortic valve replacement. Reviewed by: Nika Modi MD on 05/23/2023 11:42 AM PDT Approved by: Nika Modi MD on 05/23/2023 11:42 AM PDT Station ID: [id number]
== END 2023-05-23 23:59 | disposition home or self-care (01) ==
LOC: DI.N 10:35
PROVIDERS: ATTEND Nurse Practitioner
DX: J06.9 Acute upper respiratory infection, unspecified (principal); I51.7 Cardiomegaly; Z95.2 Presence of prosthetic heart valve

== ENCOUNTER 2023-06-08 08:00 | Outpatient (CLI) | payer MEDICARE, OTHER | END 2023-06-08 23:59 | disposition home or self-care (01) | LOC: LAB.N 08:00 | PROVIDERS: ATTEND Physician Assistant | DX: I35.9 Nonrheumatic aortic valve disorder, unspecified (principal); Z79.01 Long term (current) use of anticoagulants; I48.91 Unspecified atrial fibrillation ==

== ENCOUNTER 2023-06-11 08:38 | Outpatient (CLI) | payer MEDICARE, OTHER | END 2023-06-11 08:39 | disposition short-term general hospital (02) | LOC: EMS 08:38 | DX: R06.02 Shortness of breath (principal); R05.9 Cough, unspecified | CPT/HCPCS: A0425; A0429; A0888 ==

== ENCOUNTER 2023-06-20 10:59 | Outpatient (CLI) | payer MEDICARE, OTHER ==
[2023-06-20 18:48] LABS: CALCIUM 9.2 mg/dL (8.5-10.3); CREATININE 1.8 mg/dL (0.6-1.3); POTASSIUM 4.2 mmol/L (3.5-4.5)
== END 2023-06-20 11:00 | disposition home or self-care (01) ==
LOC: LAB.N 10:59
PROVIDERS: ATTEND Family Medicine
DX: N18.4 Chronic kidney disease, stage 4 (severe) (principal); I50.9 Heart failure, unspecified
CPT/HCPCS: 36415; 80048; 83880

== ENCOUNTER 2023-07-13 08:00 | Outpatient (CLI) | payer MEDICARE, OTHER | END 2023-07-13 23:59 | disposition home or self-care (01) | LOC: LAB.N 08:00 | PROVIDERS: ATTEND Physician Assistant | DX: I35.9 Nonrheumatic aortic valve disorder, unspecified (principal); Z79.01 Long term (current) use of anticoagulants; G45.9 Transient cerebral ischemic attack, unspecified; I48.91 Unspecified atrial fibrillation ==

== ENCOUNTER 2023-07-22 09:56 | Outpatient (CLI) | payer MEDICARE, OTHER ==
[2023-07-22 13:01] LABS: CALCIUM 9.3 mg/dL (8.5-10.3); CREATININE 1.8 mg/dL (0.6-1.3); POTASSIUM 3.8 mmol/L (3.5-4.5)
== END 2023-07-22 09:57 | disposition home or self-care (01) ==
LOC: LAB.N 09:56
PROVIDERS: ATTEND Physician Assistant
DX: I50.9 Heart failure, unspecified (principal)
CPT/HCPCS: 36415; 80048; 83880

== ENCOUNTER 2023-09-28 08:00 | Outpatient (CLI) | payer MEDICARE, OTHER | END 2023-09-28 08:01 | disposition home or self-care (01) | LOC: LAB.N 08:00 | PROVIDERS: ATTEND Physician Assistant | DX: I48.91 Unspecified atrial fibrillation (principal); I35.9 Nonrheumatic aortic valve disorder, unspecified ==

== ENCOUNTER 2023-10-18 08:50 | Outpatient (CLI) | payer MEDICARE, OTHER ==
[2023-10-18 12:31] LABS: BASOPHILS % (AUTO) 0.3 %; EOSINOPHILS # (AUTO) 0.2 10^3/uL (0.0-0.7); EOSINOPHILS % (AUTO) 3.1 %; HCT - HEMATOCRIT 44.1 % (37.0-47.0); HGB - HEMOGLOBIN 13.2 g/dL (12.0-16.0); LYMPHOCYTES % (AUTO) 17.8 %; MEAN CORPUSCULAR HEMOGLOBIN 27.4 pg (27.0-31.0); MEAN CORPUSCULAR HGB CONC 29.9 g/dL (32.0-36.0); MEAN CORPUSCULAR VOLUME 91.7 fL (81.0-99.0); MEAN PLATELET VOLUME 10.5 fL (7.9-10.8); MONOCYTES # (AUTO) 0.4 10^3/uL (0.0-1.0); MONOCYTES % (AUTO) 7.7 %; NEUTROPHILS # (AUTO) 4.1 10^3/uL (1.5-6.6); NEUTROPHILS % (AUTO) 70.9 %; PLT - PLATELET COUNT 266 10^3/uL (130-450); RED BLOOD COUNT 4.81 10^6/uL (4.20-5.40); RED CELL DISTRIBUTION WIDTH 14.1 % (12.0-15.0); WHITE BLOOD COUNT 5.7 x10^3/uL (4.8-10.8)
[2023-10-18 13:22] LABS: ESTIMATED AVERAGE GLUCOSE 105 mg/dL (70-100); HEMOGLOBIN A1c% 5.3 % (4.27-6.07)
[2023-10-18 14:20] LABS: ALBUMIN 4.2 g/dL (3.2-5.5); ALBUMIN/GLOBULIN RATIO 1.1 (1.0-2.2); ALKALINE PHOSPHATASE 97 IU/L (42-121); ALT ALANINE AMINOTRANSFERASE 14 IU/L (10-60); AST ASPARTATE AMINOTRANSFERASE 17 IU/L (10-42); BILIRUBIN,TOTAL 0.5 mg/dL (0.2-1.0); BUN - BLOOD UREA NITROGEN 34 mg/dL (6-20); CALCIUM 9.6 mg/dL (8.5-10.3); CARBON DIOXIDE - CO2 26 mmol/L (21-32); CHLORIDE 108 mmol/L (101-111); CHOLESTEROL 154 mg/dL; CREATININE 1.9 mg/dL (0.6-1.3); GFR - MDRD 26 (>89); GLUCOSE 116 mg/dL (74-104); HDL CHOLESTEROL 52 mg/dL; LDL CHOLESTEROL,CALCULATED 76 mg/dL; LDL/HDL RATIO 1.5 (<4.4); POTASSIUM 4.2 mmol/L (3.5-4.5); SODIUM 142 mmol/L (135-145); TOTAL PROTEIN 7.9 g/dL (6.4-8.9); TRIGLYCERIDES 131 mg/dL (48-352); URIC ACID 4.4 mg/dL (2.3-6.6); VLDL CHOLESTEROL 26 mg/dL
== END 2023-10-18 08:51 | disposition home or self-care (01) ==
LOC: LAB.N 08:50
PROVIDERS: ATTEND Physician Assistant
DX: I13.0 Hypertensive heart and chronic kidney disease with heart failure and stage 1 through stage 4 chronic kidney disease, or unspecified chronic kidney disease (principal); R73.01 Impaired fasting glucose; E05.90 Thyrotoxicosis, unspecified without thyrotoxic crisis or storm; E78.5 Hyperlipidemia, unspecified; M10.9 Gout, unspecified
CPT/HCPCS: 36415; 80053; 80061; 83036; 83721; 84443; 84550; 85025

== ENCOUNTER 2023-10-18 23:14 | Outpatient (CLI) | payer MEDICARE, OTHER | END 2023-10-18 23:15 | disposition critical access hospital (66) | LOC: EMS 23:14 | DX: R42 Dizziness and giddiness (principal); R11.0 Nausea | CPT/HCPCS: A0425; A0427 ==

== ENCOUNTER 2023-10-18 23:31 | Emergency (ER) | payer MEDICARE, OTHER ==
[2023-10-18 23:47] VITALS: O2SAT 94
[2023-10-19 00:20] LABS: BASOPHILS % (AUTO) 0.5 %; EOSINOPHILS # (AUTO) 0.2 10^3/uL (0.0-0.7); EOSINOPHILS % (AUTO) 2.2 %; HCT - HEMATOCRIT 39.1 % (37.0-47.0); LYMPHOCYTES # (AUTO) 0.8 10^3/uL (1.5-3.5); LYMPHOCYTES % (AUTO) 10.2 %; MEAN CORPUSCULAR HEMOGLOBIN 27.9 pg (27.0-31.0); MEAN CORPUSCULAR HGB CONC 30.7 g/dL (32.0-36.0); MEAN CORPUSCULAR VOLUME 90.9 fL (81.0-99.0); MEAN PLATELET VOLUME 9.8 fL (7.9-10.8); MONOCYTES # (AUTO) 0.5 10^3/uL (0.0-1.0); MONOCYTES % (AUTO) 6.9 %; NEUTROPHILS % (AUTO) 79.8 %; PLT - PLATELET COUNT 229 10^3/uL (130-450); RED CELL DISTRIBUTION WIDTH 13.9 % (12.0-15.0); WHITE BLOOD COUNT 7.6 x10^3/uL (4.8-10.8)
[2023-10-19 00:26] LABS: INR 2.3 (0.8-1.2); PT - PROTHROMBIN TIME 24.2 secs (9.9-12.6)
[2023-10-19 00:39] LABS: ALBUMIN 3.9 g/dL (3.2-5.5); ALBUMIN/GLOBULIN RATIO 1.3 (1.0-2.2); BILIRUBIN,TOTAL 0.4 mg/dL (0.2-1.0); CALCIUM 8.9 mg/dL (8.5-10.3); CREATININE 1.8 mg/dL (0.6-1.3); POTASSIUM 3.9 mmol/L (3.5-4.5)
--- NOTE | 2023-10-19 00:40 | ED Physician Documentation ---
History of Present Illness - Stated complaint Stated Complaint: DIZZY - Chief complaint Chief Complaint: Neuro - History obtained from History obtained from: Patient - Additonal information Additional information: BIBA. HPI from patient. Patient c/o sudden onset dizziness, sensation of spinning despite lying still. 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 Denies h/o similar symptoms. Denies weakness, numbness, visual changes. She says she had a migraine headache last night before going to bed but the headache was similar to previous migraines she has had and has resolved. FSBS 144 per EMS. Review of Systems Eyes: denies: Loss of vision, Decreased vision, Photophobia Ears: denies: Loss of hearing, Ear pain, Drainage/discharge, Tinnitus/ringing Nose: reports: Reviewed and negative Neurologic: denies: Generalized weakness, Focal weakness, Numbness, Difficulty speaking, Headache PD PAST MEDICAL HISTORY - Past Medical History Cardiovascular: Hypertension, High cholesterol, Atrial fibrillation, Murmur, Arrhythmia, Valve disorder Respiratory: Shortness of breath Endocrine/Autoimmune: None GI: Hiatal hernia : Incontinence HEENT: Chronic vision loss Psych: Depression, Anxiety, Panic attacks Musculoskeletal: Osteoarthritis Derm: None - Past Surgical History Past Surgical History: Yes General: Other Ortho: Knee replacement, Arthroscopic surgery, Other /PROGRAM TECHNICIAN: Tubal ligation Cardiovascular: CABG, Valve replacement - Present Medications Home Medications: Ambulatory Orders Medication Instructions Recorded Confirmed Aspirin 81 mg PO DAILY 10/02/13 03/14/18 Buspirone HCl 15 mg PO BID 10/02/13 03/14/18 FLUoxetine [PROzac] 40 mg PO DAILY 10/02/13 03/14/18 Metoprolol Succinate [Toprol Xl] 25 mg PO BID 10/02/13 03/14/18 Mirtazapine [Remeron] 22.5 mg PO HS 10/02/13 03/14/18 Pantoprazole Sodium [Protonix] 40 mg PO BID 10/02/13 03/14/18 ALPRAZolam [Xanax] 0.5 mg PO ONCE PRN 12/17/13 03/14/18 traMADol [Ultram] 50 mg PO TID 12/17/13 03/14/18 Atorvastatin [Lovastatin] 40 mg DAILY 12/23/13 03/14/18 Furosemide [Lasix] 40 mg PO BID 11/11/16 03/14/18 Acetaminophen with Codeine 1 tab PO Q4H PRN 04/12/17 03/14/18 [Acetaminophen-Cod #3 Tablet] Amiodarone HCl 200 mg PO DAILY 04/12/17 03/14/18 Cyanocobalamin (Vitamin B-12) 1,000 mcg PO DAILY 04/12/17 03/14/18 [Vitamin B-12] Losartan Potassium 12.5 mg PO DAILY 04/12/17 03/14/18 Warfarin [Coumadin] 2.5 mg PO DAILY 04/12/17 03/14/18 buPROPion HCL [Bupropion HCl Sr] 150 mg PO DAILY 04/12/17 03/14/18 Folic Acid 0.4 mg PO DAILY 05/24/17 03/14/18 Biotin 1 tab PO DAILY 08/23/17 03/14/18 metroNIDAZOLE 0.75% GEL [Flagyl 1 applic TOP DAILY 03/14/18 03/14/18 Gel] Meclizine HCl 25 mg PO Q6HR PRN #20 tab 10/19/23 Ondansetron Odt [Zofran Odt] 4 mg TL Q6H PRN #14 tablet 10/19/23 diazePAM [Diazepam] 2 mg PO TID PRN #10 tablet 10/19/23 - Allergies Allergies/Adverse Reactions: Allergies Allergy/AdvReac Type Severity Reaction Status Date / Time doxycycline Allergy Severe Emesis Verified 10/18/23 23:41 azithromycin [From Zithromax] Allergy Unknown Verified 10/18/23 23:41 trazodone Allergy Respiratory Verified 10/18/23 23:41 shellfish derived AdvReac Hives Verified 10/18/23 23:41 - Social History Does the pt smoke?: No Smoking Status: Never smoker Does the pt drink ETOH?: Yes Does the pt have substance abuse?: No - Immunizations Immunizations are current?: Yes - POLST Patient has POLST: No PD ED PE NORMAL - Vitals Vital signs reviewed: Yes - General General: Alert and oriented X 3, No acute distress (NAD at rest but appears uncomfortable due to dizziness when moving her head (turning either direction)), Well developed/nourished - HEENT HEENT: PERRL, EOMI, Ears normal - Cardiac Cardiac: RRR - Neuro Neuro: Alert and oriented X 3, 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, No motor deficit, No sensory deficit, Normal speech Eye Opening: Spontaneous Motor: Obeys Commands Verbal: Oriented GCS Score: 15 PD ED PE EXPANDED - Cardiac Cardiac: Murmur Present (3/6 RUBA at cardiac base, greatest at right 2nd ICS) - Neuro Neuro: Nystagmus (nystagmus with horizontal gaze when looking to her right (fast phase towards patient's right)) Results - Vitals Vitals: Vital Signs - 24 hr 10/18/23 10/19/23 10/19/23 23:37 02:30 03:30 Temperature 36.5 C Heart Rate 73 71 72 Respiratory 20 20 18 Rate Blood Pressure 126/72 99/76 113/66 O2 Saturation 94 92 94 10/19/23 04:57 Temperature Heart Rate 69 Respiratory 20 Rate Blood Pressure 113/63 O2 Saturation 94 Oxygen O2 Source Room air - EKG (time done) No standard instances EKG releavant findings:: EKG personally interpreted by author of this note. Relevant findings are: Rate: Rate (enter#) (68) Rhythm: NSR [place]: Normal Intervals: Prolonged MN (borderline prolonged MN) QRS: Normal Ischemia: Normal ST segments - Labs Labs: Laboratory Tests 10/19/23 10/19/23 10/19/23 00:10 00:10 00:10 WBC 7.6 RBC 4.30 Hgb 12.0 Hct 39.1 MCV 90.9 MCH 27.9 MCHC 30.7 L RDW 13.9 Plt Count 229 MPV 9.8 Neut # (Auto) 6.0 Lymph # (Auto) 0.8 L [place] # (Auto) 0.5 Eos # (Auto) 0.2 Baso # (Auto) 0.0 Absolute Nucleated RBC 0.00 Nucleated RBC % 0.0 PT 24.2 H INR 2.3 H Sodium 138 Potassium 3.9 Chloride 107 Carbon Dioxide 23 Anion Gap 8.0 BUN 38 H Creatinine 1.8 H Estimated GFR (MDRD) 28 L Glucose 142 H Calcium 8.9 Total Bilirubin 0.4 AST 14 ALT 13 Alkaline Phosphatase 85 Total Protein 7.0 Albumin 3.9 Globulin 3.1 Albumin/Globulin Ratio 1.3 Lipase 39 PD Medical Decision Making - ED course Complexity details: reviewed results, re-evaluated patient, considered differential, d/w patient ED course: No concerning nor diagnostic findings on CBC, ER abdominal panel. Elevated bun/creatinine (38, 1.8) are comparable to patient's baseline (compared to results over past several years). INR 2.3; patient is on coumadin for atrial fibrillation. Patient's H+P is strongly c/w peripheral vertigo. No other neurologic c/o nor findings on exam aside from dizziness (with n/v) and nystagmus on exam as noted in PE, above. She is given 25mg PO meclizine which provided modest improvement, but symptoms recurred with sitting up in bed. She is then given 4mg TL zofran and 2.5 mg PO valium. I performed chanda maneuver but this also did not seem to provide much improvement. However, on reevaluation after adequate time for the zofran and valium to have taken effect, she is reporting feeling improved and was subse quently able to use bedside commode with only mild exacerbation of her vertigo. Results reviewed with patient and return precautions discussed. Prescriptions for zofran, meclizine, and diazepam are electronically submitted to patient's pharmacy of choice. Departure - Departure Disposition: Home, Self Care Clinical Impression: Vertigo Condition: Good Instructions: Meclizine, ED Vertigo Unspecified Prescriptions: Meclizine HCl 25 mg PO Q6HR PRN #20 tab PRN Reason: Vertigo diazePAM [Diazepam] 2 mg PO TID PRN #10 tablet PRN Reason: Vertigo Ondansetron Odt [Zofran Odt] 4 mg TL Q6H PRN #14 tablet PRN Reason: Nausea / Vomiting Comments: Your description of your symptoms and the physical exam are all consistent with vertigo. Vertigo resolves without any specific treatment but it can take days, sometimes even 1 or more weeks to resolve. In the meantime, I have prescribed medications that can help decrease the symptoms (dizziness, nausea and vomiting). I have prescribed MECLIZINE. This is an anti-vertigo medication. Take per label instructions as needed for vertigo/dizziness. Do not drive for at least 6 hours after taking meclizine, as it can cause drowsiness. I have also prescribed ONDANSETRON (brand name Zofran). This is an antinausea medication. Take per label instructions as needed for nausea or vomiting. I have also prescribed DIAZEPAM (brand name Valium). Use this medication per label instructions as needed for vertigo if the meclizine does not effectively control your dizziness. Do not drive for a minimum of 6 hours after a dose of diazepam, as it typically causes some degree of drowsiness and sedation. I have electronically submitted these prescriptions to the [facility] pharmacy in [place]. Even if you have not taken these medications for over 6 hours, do not drive if you are experiencing dizziness/vertigo. You can try CHANDA MANEUVERS at home. This is a series of movements that helps some patients with vertigo, occasionally completely eliminating the symptoms. We tried the chanda maneuver in the emergency department but it did not seem to result in improvement. Some patients do have success with repeated tries with the chanda maneuver, so you can try again at home to see if it works for you. There are many videos on youtube that review how to perform the cahnda maneuver. I recommend trying one that does not require your head to be over the edge of the bed, as this can lead to falls and neck problems. Discharge Date/Time: 10/19/23 04:59
[2023-10-19] MEDS: MECLIZINE 12.5 MG TABLET PO STA (01:09)
[2023-10-19] MEDS: diazePAM 5 MG TABLET PO STA ×2 (02:35→02:40)
[2023-10-19] MEDS: ONDANSETRON ODT 4 MG TABLET TL STA (02:36)
[2023-10-19 05:08] VITALS: BP 113/63
== END 2023-10-19 04:59 | disposition home or self-care (01) ==
LOC: EDUNIT# → ED 23:31
DX: R42 Dizziness and giddiness (principal)
CPT/HCPCS: 36415; 80053; 83690; 85025; 85610; 93005; 99283; 99284; A9270; Q0162

== ENCOUNTER 2023-11-16 08:00 | Outpatient (CLI) | payer MEDICARE, OTHER | END 2023-11-16 08:01 | disposition home or self-care (01) | LOC: LAB.WCP 08:00 | PROVIDERS: ATTEND Physician Assistant | DX: I35.9 Nonrheumatic aortic valve disorder, unspecified (principal); Z79.01 Long term (current) use of anticoagulants; G45.9 Transient cerebral ischemic attack, unspecified; I48.91 Unspecified atrial fibrillation ==

== ENCOUNTER 2023-11-30 08:00 | Outpatient (CLI) | payer MEDICARE, OTHER | END 2023-11-30 08:01 | disposition home or self-care (01) | LOC: LAB.N 08:00 | PROVIDERS: ATTEND Physician Assistant | DX: I35.9 Nonrheumatic aortic valve disorder, unspecified (principal); Z79.01 Long term (current) use of anticoagulants; G45.9 Transient cerebral ischemic attack, unspecified; I48.0 Paroxysmal atrial fibrillation ==

== ENCOUNTER 2024-01-04 08:00 | Outpatient (CLI) | payer MEDICARE, OTHER | END 2024-01-04 08:01 | disposition home or self-care (01) | LOC: LAB.N 08:00 | PROVIDERS: ATTEND Physician Assistant | DX: I35.9 Nonrheumatic aortic valve disorder, unspecified (principal); Z79.01 Long term (current) use of anticoagulants; G45.9 Transient cerebral ischemic attack, unspecified; I48.0 Paroxysmal atrial fibrillation ==

== ENCOUNTER 2024-02-08 16:42 | Outpatient (CLI) | payer MEDICARE, OTHER ==
[2024-02-08 21:15] LABS: POTASSIUM 4.1 mmol/L (3.5-4.5)
== END 2024-02-08 16:43 | disposition home or self-care (01) ==
LOC: LAB.N 16:42
PROVIDERS: ATTEND Physician Assistant
DX: N18.4 Chronic kidney disease, stage 4 (severe) (principal)
CPT/HCPCS: 36415; 80048

== ENCOUNTER 2024-02-29 08:00 | Outpatient (CLI) | payer MEDICARE, OTHER | END 2024-02-29 23:59 | disposition home or self-care (01) | LOC: LAB.WCP 08:00 | PROVIDERS: ATTEND Physician Assistant | DX: I35.9 Nonrheumatic aortic valve disorder, unspecified (principal); I48.0 Paroxysmal atrial fibrillation; G45.9 Transient cerebral ischemic attack, unspecified; Z79.01 Long term (current) use of anticoagulants ==

== ENCOUNTER 2024-04-11 08:00 | Outpatient (CLI) | payer MEDICARE, OTHER | END 2024-04-11 23:59 | disposition home or self-care (01) | LOC: LAB.N 08:00 | PROVIDERS: ATTEND Physician Assistant | DX: I48.91 Unspecified atrial fibrillation (principal); I35.9 Nonrheumatic aortic valve disorder, unspecified; Z79.01 Long term (current) use of anticoagulants; G45.9 Transient cerebral ischemic attack, unspecified ==